=== PATIENT | male | born 1975 | race Caucasian/White ===

== ENCOUNTER 2016-05-16 10:41 | Emergency (ER) | payer OTHER ==
--- NOTE | 2016-05-16 13:37 | DIAGNOSTIC IMAGING REPORT ---
PROCEDURE: CT ABDOMEN/PELVIS W/O CONTRAST INDICATION: Right flank pain, initial encounter TECHNIQUE: Noncontrast axial images were obtained of the entire abdomen and pelvis with sagittal and coronal reformations. COMPARISON: CT abdomen/pelvis 03/02/2015 FINDINGS: ABDOMEN: 3 mm proximal right ureteral calculus with mild right hydronephrosis. There are two nonobstructing renal calculi in each kidney (one - 2 mm). Hepatic steatosis. The gallbladder, pancreas, spleen and adrenal glands are normal. Normal abdominal aorta. Nonspecific bowel gas pattern. PELVIS: Normal bladder. Normal short appendix. No pelvic mass, inflammatory changes or free fluid. No suspicious osseous lesions . IMPRESSION: 1. 3 mm proximal right ureteral calculus with mild right hydronephrosis 2. Nonobstructing bilateral renal calculi 3. Hepatic steatosis 4. Results discussed with Dr. Plunkett All CT scans at this facility use dose modulation, iterative reconstruction, and/or weight-based dosing when appropriate to reduce radiation dose to as low as reasonably achievable.
--- NOTE | 2016-05-16 14:12 | ED NURSING NOTES ---
Clinical Report - Nurses [facility] [address] [place] [address] 05/16/2016 10:41 Patient: HI BORJA TRIAGE Triage time 10:45 May 16 2016. Acuity: LEVEL 3. Chief Complaint: ABDOMINAL PAIN. Alert. MUKESH COMA SCORE: [place] Coma Scale: 15- eyes open spontaneously (4); best verbal response- oriented x 4 (5); best motor response- obeys commands (6). --10:57 Charles Kwong R.N. 10:47 05/16/16. BP: 177/99. HR: 92. RR: 18. O2 saturation: 97% on room air. Temp: 98.2 F. Pain level now: 810. Additional comments: (R) Flank/groin pain. --10:57 Charles Kwong R.N. Weight: 136 kg stated. Height/Length: 70 inches Per Patient. BMI: 43. --10:52 Charles Kwong R.N. Medications Excedrin Migraine Oral, as needed. --10:55 Charles Kwong R.N. Medication/allergy information source: the patient. --10:57 Charles Kwong R.N. Allergies No Known Drug Allergy. --10:55 Charles Kwong R.N. History Arrived by private vehicle. Historian: patient. Accompanied by family. Primary physician (none). ( (R)-sided groin and flank pain. Pt states that he has had previous kidney stones and this pain is very similar.). This started today. Onset. (about 1 1/2 hours ago). He has had nausea and abdominal pain. 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 PAST MEDICAL HX: Immunizations: status is unknown. SOCIAL HX: Former smoker, end date 2006. No alcohol use or drug use. No recent travel. No infectious disease exposure. ABUSE ASSESSMENT: No report of abuse. FALL RISK ASSESSMENT: Fall risk assessment completed. No fall risk identified. NUTRITIONAL RISK ASSESSMENT: The nutritional risk assessment revealed no deficiencies. FUNCTIONAL ASSESSMENT: Functional assessment: no impairments noted. LEARNING NEEDS ASSESSMENT: The learning needs assessment revealed no barriers. SKIN INTEGRITY ASSESSMENT: Skin integrity risk assessment completed. No skin integrity risk identified. --10:57 Charles Kwong R.N. PROBLEMS: Renal Colic. Bronchitis. Chronic bronchitis. Prior Injury, Same Area. --10:54 Charles Kwong R.N. ADDITIONAL SURGERIES: Knee Surgery. --10:54 Charles Kwong R.N. Interventions ID band on patient. To treatment room. --10:57 Charles Kwong R.N. PHYSICAL ASSESSMENT Ambulatory to room. GENERAL / NEURO / PSYCH: Alert. Oriented X 4. HEENT: Mucous membranes are pink. RESPIRATORY: Respirations not labored. Breath sounds within normal limits. CVS: Normal sinus rhythm noted. GI / : Abdomen soft. Bowel sounds within normal limits. SKIN: Skin is warm and dry. --10:57 Charles Kwong R.N. NURSING PROGRESS NOTES Patient gowned. Reassurance given. Patient identifiers checked. Call light placed in reach. Side rails up x 1. Bed placed in lowest position. Brakes of bed on. Patient ready for evaluation- chart flagged and ED physician notified. --10:57 Charles Kwong R.N. 11:47 05/16/2016 Site #1 started via IV in the right hand with an 20g angiocath. Saline lock flushed with 10 mL saline. --11:47 Charles Kwong R.N. 11:54 05/16/16. BP: 160/93. HR: 69. RR: 18. O2 saturation: 94% on room air. --11:54 Landon Tuttle R.N. 11:54 05/16/2016 Started bag #1 1000 mL IV Fluids IV NS (Saline); bolus of 1000 mL wide open then at 1000 mL/hr via site #1. Allergies verified and confirmed 5 rights. IV patency established. IV site checked: no pain, redness, or swelling. IV flushed thoroughly pre- and post-medication administration. Completed per protocol. --11:55 Landon Tuttle R.N. 11:55 05/16/2016 Dilaudid (HYDROmorphone HCl PF) IVP 1 mg given. via site #1. Allergies verified, confirmed 5 rights and sedative warning given to the patient. IV patency established. IV site checked: no pain, redness, or swelling. IV flushed thoroughly pre- and post-medication administration. IVP given by RN. --11:55 Landon Tuttle R.N. 11:55 05/16/2016 Toradol IVP 30 mg given. via site #1. Allergies verified and confirmed 5 rights. IV patency established. IV site checked: no pain, redness, or swelling. IV flushed thoroughly pre- and post-medication administration. IVP given by RN. --11:55 Landon Tuttle R.N. 11:55 05/16/2016 PHENERGAN (Promethazine HCl) IVP 12.5 mg given. via site #1. Allergies verified and confirmed 5 rights. IV patency established. IV site checked: no pain, redness, or swelling. IV flushed thoroughly pre- and post-medication administration. IVP given by RN. --11:55 Landon Tuttle R.N. ( Placed Pt on 2L 02 via nasal cannula d/t decreased 02 sats post pain medication administration.). --11:58 Landon Tuttle R.N. 11:56 05/16/16. O2 saturation: 88% on room air. --11:59 Landon Tuttle R.N. 11:59 05/16/16. O2 saturation: 94% on nasal cannula at 2 liters/minute. --11:59 Landon Tuttle R.N. 12:10 05/16/16. Checked patient name, birthdate and medical record number: patient confirmed. Instructions provided to collect clean catch urine and patient verbalized understanding. Clean catch urine collected with return of stella-colored clear urine; odor is normal; sample sent to lab for urinalysis and culture. Specimen labeled in the presence of the patient. --12:12 Charles Kwong R.N. 12:30 05/16/16. BP: 158/65. HR: 84. RR: 16. O2 saturation: 96% on nasal cannula at 2 liters/minute. Pain level now: 0/10. --12:46 Charles Kwong R.N. 13:00 05/16/2016 IV Fluids IV NS Discontinued: bag #1 infused. Total amount infused: 1000 mL. IV patency established. IV site checked: no pain, redness, or swelling. IV flushed thoroughly. --15:15 Charles Kwong R.N. 14:05 05/16/2016 Site #1 removed upon discharge. Catheter intact. Pressure dressing, bandaid and bandage applied. --15:16 Charles Kwong R.N. DISPOSITION / DISCHARGE 14:05 05/16/16. BP: 143/85. HR: 78. RR: 16. O2 saturation: 96% on room air. Temp: 98.6 F (oral). Pain level now: 0/10. --14:44 Charles Kwong R.N. <<STRICKEN ENTRY-- 14:15. --14:44 Charles Kwong R.N. --END STRIKE>> Correction --15:12 Charles Kwong R.N. Departure time: 1415. --15:12 Charles Kwong R.N. 14:15. Condition at departure: improved. No learning barriers present. Discharge instructions provided and reviewed with the patient. Reviewed medication(s) (prescription given to pt). Reviewed referral to family practice for followup. Patient verbalized understanding. Written instructions provided in Khmer. The patient was discharged by the physician. He was discharged home and accompanied by diesel technician. He left the Emergency Department ambulatory and via private vehicle. Data Warehouse Manager driving. --15:14 Charles Kwong R.N. Locked/Released at 05/16/2016 15:17 by Charles Kwong R.N.
--- NOTE | 2016-05-16 14:12 | ED ORDER SUMMARY ---
..... Patient: HI BORJA OrderSheet [facility] VisitID: [id number] [address] [place] [address] 40y, M Registration Date/Time: 05/16/2016 ORDER SHEET Weight: 136.0 kg (stated) Allergies: No Known Drug Allergy GENERAL ORDERS: UA-Culture if indicated Urgent (11:34 05/16/2016 Manjit SHIELDS) (Ack 11:36 LNations ER Tech1) (12:10 Isaiah R.N.) CT Abd/Pel wo Cont Urgent (11:05/16/2016 Manjit SHIELDS) (Ack 11:36 LNations ER Tech1) (15:16 Isaiah R.N.) MEDICATION ORDERS: Phenergan IV 12.5 mg (NOW) (:05/16/2016 Manjit SHIELDS) (11:55 MCook R.N.) IV FLUIDS: IV NS : initial bolus 1000 mL (1000 mL/hr), then none - for X1 (NOW); Routine (11:05/16/2016 Manjit SHIELDS) (11:55 MCook R.N.) Dilaudid IV 1 mg (NOW) (:05/16/2016 Manjit SHIELDS) (11:55 MCkunal R.N.) Toradol IV 30 mg (NOW) (:05/16/2016 Manjit SHIELDS) (11:55 MCook R.N.) ORDER SHEET NOTES: [Electronically signed by Charles Kwong R.N. (15:05/16/2016)] [Electronically signed by Nilo Plunkett MD (21:03 05/18/2016)] [Electronically locked/signed by Charles Kwong R.N. (15:05/16/2016)]
--- NOTE | 2016-05-16 14:12 | ED ORDER SUMMARY ---
..... Patient: HI BORJA OrderSheet [facility] VisitID: [id number] [address] [place] [address] 40y, M Registration Date/Time: 05/16/2016 ORDER SHEET Weight: 136.0 kg (stated) Allergies: No Known Drug Allergy GENERAL ORDERS: UA-Culture if indicated Urgent (11:34 05/16/2016 Manjit SHIELDS) (Ack 11:36 LNations ER Tech1) (12:10 Isaiah R.N.) CT Abd/Pel wo Cont Urgent (11:05/16/2016 Manjit SHIELDS) (Ack 11:36 LNations ER Tech1) (15:16 Isaiah R.N.) MEDICATION ORDERS: Phenergan IV 12.5 mg (NOW) (:05/16/2016 Manjit SHIELDS) (11:55 MCook R.N.) IV FLUIDS: IV NS : initial bolus 1000 mL (1000 mL/hr), then none - for X1 (NOW); Routine (11:05/16/2016 Manjit SHIELDS) (11:55 MCook R.N.) Dilaudid IV 1 mg (NOW) (:05/16/2016 Manjit SHIELDS) (11:55 MCkunal R.N.) Toradol IV 30 mg (NOW) (:05/16/2016 Manijt SHIELDS) (11:55 MCook R.N.) ORDER SHEET NOTES: [Electronically signed by Charles Kwong R.N. (15:05/16/2016)] [Electronically signed by Nilo Plunkett MD (21:03 05/18/2016)] [Electronically locked/signed by Charles Kwong R.N. (15:05/16/2016)]
--- NOTE | 2016-05-16 14:12 | ED CLINICAL REPORT ---
Clinical Report - Physicians/Mid Levels [facility] [address] [place] [address] 05/16/2016 10:41 Patient: HI BORJA Time Seen: 11:22 May 16 2016. Arrived- By private vehicle. Historian- patient. CPT: ER phys charges level 4 (#[id number]). HISTORY OF PRESENT ILLNESS Chief Complaint: ABDOMINAL PAIN and FLANK PAIN. At its maximum, severity described as 8 / 10. When seen in the E.D., severity described as 8 / 10. Modifying factors. Not worsened by anything. Not relieved by anything. It is described as "pain" and it is described as located in the right flank and the right abdomen, right lower quadrant and right pelvis. This started today 0900. It was abrupt in onset and has been constant. The patient has had nausea. No loss of appetite, vomiting or diarrhea. No recent travel. Similar symptoms previously: As bad. Diagnosis: kidney stone. Recent medical care: Not recently seen/assessed. REVIEW OF SYSTEMS No constipation, black stools, hematemesis, difficulty with urination or pain with urination. No urinary frequency, fever, sore throat, chest pain or difficulty breathing. No cough, joint pain, skin rash or chills. The patient has had back pain. All systems otherwise negative, except as recorded above. PAST HISTORY Has had urinary calculi. Renal Colic. Bronchitis. Chronic bronchitis. Prior Injury, Same Area. Obesity Additional Surgeries: Knee Surgery. SOCIAL HISTORY Former smoker. No alcohol use or drug use. ADDITIONAL NOTES The nursing notes have been reviewed. PHYSICAL EXAM Vital Signs: 05/16/2016 10:47 BP: 177/99. HR: 92. RR: 18. O2 saturation: 97%. Temp: 98.2 F. Pain level now: 8/10. Appearance: Alert. Appears to be in pain. Patient in moderate distress. Eyes: Pupils equal, round and reactive to light. Eyes normal inspection. ENT: Ears normal. Nose normal. Pharynx normal. Neck: Normal inspection. Neck supple. CVS: Normal heart rate and rhythm. Heart sounds normal. Pulses normal. Respiratory: No respiratory distress. Breath sounds normal. Chest nontender. Abdomen: Nontender. Bowel sounds normal. Obese. Back: Normal inspection. No CVA tenderness. Skin: Skin warm. Normal skin color. No rash. Extremities: Extremities exhibit normal ROM. Neuro: Oriented X 3. No motor deficit. No sensory deficit. Reflexes normal. LABS, X-RAYS, AND EKG Laboratory Tests: UA-Culture if indicated: (CYDNEY: 05/16/2016 12:05) ( MsgRcvd 05/16/2016 12:35) Final results Test Result Flag Units (Reference) URINE COLOR YELLOW URINE APPEARANCE SL CLOUDY URINE GLUCOSE NEGATIVE (NEGATIVE) URINE BILIRUBIN NEGATIVE (NEGATIVE) URINE KETONE NEGATIVE (NEGATIVE) URINE SPECIFIC GRAVITY 1.015 (1.010-1.030) URINE PH 7.0 (5.0-8.0) URINE PROTEIN 1+ (NEGATIVE) URINE UROBILINOGEN 0.2 EU/dL (0.2-1.0) URINE NITRITE NEGATIVE (NEGATIVE) URINE BLOOD 3+ (NEGATIVE) URINE LEUK ESTERASE NEGATIVE (NEGATIVE) URINE RBC >100 rbc/hpf (0-1) URINE WBC 1-3 wbc/hpf (0-1) URINE EPITHELIAL CELLS 0-1 EPI/hpf (0-5) URINE BACTERIA TRACE (<1+) (NONE SEEN) URINE COMMENT CULT NOT INDICATED URINE CULTURES ARE SET-UP BASED ON THE FOLLOWING CRITERIA:POSITIVE NITRITEPOSITIVE LEUKOCYTE ESTERASEGREATER THAN 10 WHITE BLOOD CELLSMODERATE (2+) OR GREATER BACTERIA . PROGRESS AND PROCEDURES Course of Care: IV NS Dilaudid 1 mg IV Toradol 30 mg IV Phenergan 12.5 mg IV Patient is stable. Symptoms better. Patient/family counseled. Disposition: Discharged. Condition: stable and improved. CLINICAL IMPRESSION Ureterolithiasis (single stone) in the right ureter. INSTRUCTIONS No strenuous activity. Do not work for two days until better. Drink plenty of fluids. Warnings: Further evaluation is necessary. SEDATIVE MEDICATION: You were given sedative medication during your visit. Do not drive or operate dangerous machinery. GENERAL WARNINGS: Return or contact your physician immediately if your condition worsens or changes unexpectedly, if not improving as expected, or if other problems arise. Your Current Medications: CONTINUE TAKING THE FOLLOWING MEDICATIONS: Excedrin Migraine Oral : prn. Prescription Medications: Zofran (orally disintegrating tablets) 4 mg: take 1 orally every 6 hours as needed for nausea. Dispense ten (10). No refill. Substitution is permissible. Oxycodone/APAP 5 mg/325 mg: take 1-2 tablets orally every 4 hours as needed for pain. Dispense twenty-five (25). No refill. Flomax 0.4 mg: take 1 orally every 24 hours. Dispense five (5). No refills. Follow-up: Follow up with your doctor in two days if not better. Understanding of the discharge instructions verbalized by patient. (Electronically signed by Nilo Plunkett MD 05/18/2016 21:03)
--- NOTE | 2016-05-16 14:12 | ED NURSING NOTES ---
Clinical Report - Nurses [facility] [address] [place] [address] 05/16/2016 10:41 Patient: HI BORJA TRIAGE Triage time 10:45 May 16 2016. Acuity: LEVEL 3. Chief Complaint: ABDOMINAL PAIN. Alert. MUKESH COMA SCORE: [place] Coma Scale: 15- eyes open spontaneously (4); best verbal response- oriented x 4 (5); best motor response- obeys commands (6). --10:57 Charles Kwong R.N. 10:47 05/16/16. BP: 177/99. HR: 92. RR: 18. O2 saturation: 97% on room air. Temp: 98.2 F. Pain level now: 810. Additional comments: (R) Flank/groin pain. --10:57 Charles Kwong R.N. Weight: 136 kg stated. Height/Length: 70 inches Per Patient. BMI: 43. --10:52 Charles Kwong R.N. Medications Excedrin Migraine Oral, as needed. --10:55 Charles Kwong R.N. Medication/allergy information source: the patient. --10:57 Charles Kwong R.N. Allergies No Known Drug Allergy. --10:55 Charles Kwong R.N. History Arrived by private vehicle. Historian: patient. Accompanied by family. Primary physician (none). ( (R)-sided groin and flank pain. Pt states that he has had previous kidney stones and this pain is very similar.). This started today. Onset. (about 1 1/2 hours ago). He has had nausea and abdominal pain. 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 PAST MEDICAL HX: Immunizations: status is unknown. SOCIAL HX: Former smoker, end date 2006. No alcohol use or drug use. No recent travel. No infectious disease exposure. ABUSE ASSESSMENT: No report of abuse. FALL RISK ASSESSMENT: Fall risk assessment completed. No fall risk identified. NUTRITIONAL RISK ASSESSMENT: The nutritional risk assessment revealed no deficiencies. FUNCTIONAL ASSESSMENT: Functional assessment: no impairments noted. LEARNING NEEDS ASSESSMENT: The learning needs assessment revealed no barriers. SKIN INTEGRITY ASSESSMENT: Skin integrity risk assessment completed. No skin integrity risk identified. --10:57 Charles Kwong R.N. PROBLEMS: Renal Colic. Bronchitis. Chronic bronchitis. Prior Injury, Same Area. --10:54 Charles Kwong R.N. ADDITIONAL SURGERIES: Knee Surgery. --10:54 Charles Kwong R.N. Interventions ID band on patient. To treatment room. --10:57 Charles Kwong R.N. PHYSICAL ASSESSMENT Ambulatory to room. GENERAL / NEURO / PSYCH: Alert. Oriented X 4. HEENT: Mucous membranes are pink. RESPIRATORY: Respirations not labored. Breath sounds within normal limits. CVS: Normal sinus rhythm noted. GI / : Abdomen soft. Bowel sounds within normal limits. SKIN: Skin is warm and dry. --10:57 Charles Kwong R.N. NURSING PROGRESS NOTES Patient gowned. Reassurance given. Patient identifiers checked. Call light placed in reach. Side rails up x 1. Bed placed in lowest position. Brakes of bed on. Patient ready for evaluation- chart flagged and ED physician notified. --10:57 Charles Kwong R.N. 11:47 05/16/2016 Site #1 started via IV in the right hand with an 20g angiocath. Saline lock flushed with 10 mL saline. --11:47 Charles Kwong R.N. 11:54 05/16/16. BP: 160/93. HR: 69. RR: 18. O2 saturation: 94% on room air. --11:54 Landon Tuttle R.N. 11:54 05/16/2016 Started bag #1 1000 mL IV Fluids IV NS (Saline); bolus of 1000 mL wide open then at 1000 mL/hr via site #1. Allergies verified and confirmed 5 rights. IV patency established. IV site checked: no pain, redness, or swelling. IV flushed thoroughly pre- and post-medication administration. Completed per protocol. --11:55 Landon Tuttle R.N. 11:55 05/16/2016 Dilaudid (HYDROmorphone HCl PF) IVP 1 mg given. via site #1. Allergies verified, confirmed 5 rights and sedative warning given to the patient. IV patency established. IV site checked: no pain, redness, or swelling. IV flushed thoroughly pre- and post-medication administration. IVP given by RN. --11:55 Landon Tuttle R.N. 11:55 05/16/2016 Toradol IVP 30 mg given. via site #1. Allergies verified and confirmed 5 rights. IV patency established. IV site checked: no pain, redness, or swelling. IV flushed thoroughly pre- and post-medication administration. IVP given by RN. --11:55 Landon Tuttle R.N. 11:55 05/16/2016 PHENERGAN (Promethazine HCl) IVP 12.5 mg given. via site #1. Allergies verified and confirmed 5 rights. IV patency established. IV site checked: no pain, redness, or swelling. IV flushed thoroughly pre- and post-medication administration. IVP given by RN. --11:55 Landon Tuttle R.N. ( Placed Pt on 2L 02 via nasal cannula d/t decreased 02 sats post pain medication administration.). --11:58 Landon Tuttle R.N. 11:56 05/16/16. O2 saturation: 88% on room air. --11:59 Landon Tuttle R.N. 11:59 05/16/16. O2 saturation: 94% on nasal cannula at 2 liters/minute. --11:59 Landon Tuttle R.N. 12:10 05/16/16. Checked patient name, birthdate and medical record number: patient confirmed. Instructions provided to collect clean catch urine and patient verbalized understanding. Clean catch urine collected with return of stella-colored clear urine; odor is normal; sample sent to lab for urinalysis and culture. Specimen labeled in the presence of the patient. --12:12 Chrales Kwong R.N. 12:30 05/16/16. BP: 158/65. HR: 84. RR: 16. O2 saturation: 96% on nasal cannula at 2 liters/minute. Pain level now: 0/10. --12:46 Charles Kwong R.N. 13:00 05/16/2016 IV Fluids IV NS Discontinued: bag #1 infused. Total amount infused: 1000 mL. IV patency established. IV site checked: no pain, redness, or swelling. IV flushed thoroughly. --15:15 Charles Kwong R.N. 14:05 05/16/2016 Site #1 removed upon discharge. Catheter intact. Pressure dressing, bandaid and bandage applied. --15:16 Charles Kwong R.N. DISPOSITION / DISCHARGE 14:05 05/16/16. BP: 143/85. HR: 78. RR: 16. O2 saturation: 96% on room air. Temp: 98.6 F (oral). Pain level now: 0/10. --14:44 Charles Kwong R.N. <<STRICKEN ENTRY-- 14:15. --14:44 Charles Kwong R.N. --END STRIKE>> Correction --15:12 Charles Kwong R.N. Departure time: 1415. --15:12 Charles Kwong R.N. 14:15. Condition at departure: improved. No learning barriers present. Discharge instructions provided and reviewed with the patient. Reviewed medication(s) (prescription given to pt). Reviewed referral to family practice for followup. Patient verbalized understanding. Written instructions provided in Latvian. The patient was discharged by the physician. He was discharged home and accompanied by delivery agent. He left the Emergency Department ambulatory and via private vehicle. Knitter Mechanic driving. --15:14 Charles Kwong R.N. Locked/Released at 05/16/2016 15:17 by Charles Kwong R.N.
--- NOTE | 2016-05-18 21:03 | ED MAR SUMMARY ---
..... Medication Administration Record [facility] [address] [place] [address] Patient: HI BORJA Visit ID: [id number] 40y, M Weight: 136.0 kg Height/Length: 70 in BMI: 43 ALLERGIES: No Known Drug Allergy Start 11:54 05/16/2016 Landon Tuttle R.N., Stop 13:00 05/16/2016 Charles Kwong R.N. Medication Administered: IV NS (SALINE), Dose: IV Fluids, Rate: 1000 mL/hr, Bolus: 1000 mL wide open, Dispensed: 1000 mL bag, Site: #1 right hand. Medication Ordered: IV NS : initial bolus 1000 mL (1000 mL/hr), then none - for X1 (NOW); Routine. Given 11:05/16/2016 Landon Tuttle R.N. Medication Administered: DILAUDID [IVP] (HYDROMORPHONE HCL PF), Dose: 1 mg IVP, Site: #1 right hand. Medication Ordered: Dilaudid IV 1 mg (NOW). Given 11:05/16/2016 Landon Tuttle R.N. Medication Administered: TORADOL [IVP], Dose: 30 mg IVP, Site: #1 right hand. Medication Ordered: Toradol IV 30 mg (NOW). Given 11:05/16/2016 Landon Tuttle R.N. Medication Administered: PHENERGAN [IVP] (PROMETHAZINE HCL), Dose: 12.5 mg IVP, Site: #1 right hand. Medication Ordered: Phenergan IV 12.5 mg (NOW).
--- NOTE | 2016-05-18 21:03 | ED MED RECONCILIATION SUMMARY ---
Patient: HI BORJA Medication Reconciliation Report [facility] VisitID: [id number] [address] [place] [address] 40y, M Registration Date/Time: 05/16/2016 Weight: 136.0 kg Height/Length: 70 in. BMI: 43.0 ALLERGIES: No Known Drug Allergy The patient's Home Medications are listed below: CONTINUE TAKING THE FOLLOWING MEDICATIONS: Excedrin Migraine Oral The source(s) of the original Home Medication information: patient The following Medications were given to the patient in the Emergency Department: IV NS IV Fluids bolus 1000 mL wide open, then 1000 mL/hr, administered: 05/16/2016 11:54:00 AM Dilaudid [IVP] IVP 1 mg, administered: 05/16/2016 11:55:00 AM Toradol [IVP] IVP 30 mg, administered: 05/16/2016 11:55:00 AM PHENERGAN [IVP] IVP 12.5 mg, administered: 05/16/2016 11:55:00 AM The following Medications were prescribed to the patient: Zofran (orally disintegrating tablets) 4 mg: take 1 orally every 6 hours as needed for nausea. Dispense ten (10). No refill. Substitution is permissible. -- Nilo Plunkett MD Oxycodone/APAP 5 mg/325 mg: take 1-2 tablets orally every 4 hours as needed for pain. Dispense twenty-five (25). No refill. -- Nilo Plunkett MD Flomax 0.4 mg: take 1 orally every 24 hours. Dispense five (5). No refills. -- Nilo Plunkett MD
--- NOTE | 2016-05-18 21:03 | ED MAR SUMMARY ---
..... Medication Administration Record [facility] [address] [place] [address] Patient: HI BORJA Visit ID: [id number] 40y, M Weight: 136.0 kg Height/Length: 70 in BMI: 43 ALLERGIES: No Known Drug Allergy Start 11:54 05/16/2016 Landon Tuttle R.N., Stop 13:00 05/16/2016 Charles Kwong R.N. Medication Administered: IV NS (SALINE), Dose: IV Fluids, Rate: 1000 mL/hr, Bolus: 1000 mL wide open, Dispensed: 1000 mL bag, Site: #1 right hand. Medication Ordered: IV NS : initial bolus 1000 mL (1000 mL/hr), then none - for X1 (NOW); Routine. Given 11:05/16/2016 Landon Tuttle R.N. Medication Administered: DILAUDID [IVP] (HYDROMORPHONE HCL PF), Dose: 1 mg IVP, Site: #1 right hand. Medication Ordered: Dilaudid IV 1 mg (NOW). Given 11:05/16/2016 Lanodn Tuttle R.N. Medication Administered: TORADOL [IVP], Dose: 30 mg IVP, Site: #1 right hand. Medication Ordered: Toradol IV 30 mg (NOW). Given 11:05/16/2016 Landon Tuttle R.N. Medication Administered: PHENERGAN [IVP] (PROMETHAZINE HCL), Dose: 12.5 mg IVP, Site: #1 right hand. Medication Ordered: Phenergan IV 12.5 mg (NOW).
--- NOTE | 2016-05-18 21:03 | ED DISCHARGE INSTRUCTIONS ---
Patient: HI BORJA General Instructions [facility] VisitID: [id number] [place] [address] 40y, M Registration Date/Time: 05/16/2016 Ureterolithiasis (single stone) in the right ureter. INSTRUCTIONS No strenuous activity. Do not work for two days until better. Drink plenty of fluids. Warnings: Further evaluation is necessary. SEDATIVE MEDICATION: You were given sedative medication during your visit. Do not drive or operate dangerous machinery. GENERAL WARNINGS: Return or contact your physician immediately if your condition worsens or changes unexpectedly, if not improving as expected, or if other problems arise. Your Current Medications: CONTINUE TAKING THE FOLLOWING MEDICATIONS: Excedrin Migraine Oral : prn. Prescription Medications: Zofran (orally disintegrating tablets) 4 mg: take 1 orally every 6 hours as needed for nausea. Dispense ten (10). No refill. Substitution is permissible. Oxycodone/APAP 5 mg/325 mg: take 1-2 tablets orally every 4 hours as needed for pain. Dispense twenty-five (25). No refill. Flomax 0.4 mg: take 1 orally every 24 hours. Dispense five (5). No refills. Follow-up: Follow up with your doctor in two days if not better. Understanding of the discharge instructions verbalized by patient. ADDITIONAL INFORMATION Kidney Stone (W/ Colic) The sharp cramping pain and nausea/vomiting that you have is due to a small stone which has formed in the kidney and is now passing down a narrow tube (ureter) on its way to your bladder. Once it reaches your bladder, the pain will stop. The stone may pass in your urine stream in one piece. [The size may be 1/16" to 1/4" (1-6mm)]. Or, the stone may also break up into leandra fragments which you may not even notice. Once you have had a kidney stone, you are at risk for developing another one in the future. Home Care: Drink plenty of fluids (at least 8 to 10 glasses of water a day). Most stones will pass on their own, but may take from a few hours to a few days. Sometimes the stone is too large to pass by itself and special methods will have to be used to remove the stone. Each time you urinate, do so in a jar. Pour the urine from the jar through the strainer and into the toilet. Continue doing this until 24 hours after your pain stops. By then, if there was a kidney stone, it should pass from your bladder. Some stones dissolve into sand-like particles and pass right through the strainer. In that case, you wont ever see a stone. Save any stone that you find in the strainer and bring it to your doctor for analysis. It may be possible to prevent certain types of stones from forming. Therefore, it is important to know what kind of stone you have. Try to stay as active as possible since this will help the stone pass. Do not stay in bed unless your pain prevents you from getting up. You may notice a red, pink or brown color to your urine. This is normal while passing a kidney stone. Follow Up with your doctor or return to this facility if the pain lasts more than 48 hours. Get Prompt Medical Attention if any of the following occur: Pain that is not controlled by the medicine given Repeated vomiting or unable to keep down fluids Weakness, dizziness or fainting Fever of 100.4F (38C) or higher, or as directed by your healthcare provider Passage of solid red or brown urine (can't see through it) or urine with lots of blood clots Unable to pass urine for 8 hours and increasing bladder pressure Ondansetron Oral disintegrating tablet What is this medicine? ONDANSETRON (on EDELMIRA se vitaly) is used to treat nausea and vomiting caused by chemotherapy. It is also used to prevent or treat nausea and vomiting after surgery. How should I use this medicine? These tablets are made to dissolve in the mouth. Do not try to push the tablet through the foil backing. With dry hands, peel away the foil backing and gently remove the tablet. Place the tablet in the mouth and allow it to dissolve, then swallow. While you may take these tablets with water, it is not necessary to do so. Talk to your sleeve fixer regarding the use of this medicine in children. Special care may be needed. What side effects may I notice from receiving this medicine? Side effects that you should report to your doctor or health health care social worker as soon as possible: allergic reactions like skin rash, itching or hives, swelling of the face, lips, or tongue breathing problems dizziness fast or irregular heartbeat feeling faint or lightheaded, falls fever and chills swelling of the hands and feet tightness in the chest Side effects that usually do not require medical attention (report to your doctor or health health care social worker if they continue or are bothersome): constipation or diarrhea headache What may interact with this medicine? Do not take this medicine with any of the following medications: -apomorphine -cisapride -dofetilide -dronedarone -pimozide -thioridazine -ziprasidone This medicine may also interact with the following medications: -carbamazepine -phenytoin -rifampicin -tramadol -other medicines that prolong the QT interval (cause an abnormal heart rhythm) What if I miss a dose? If you miss a dose, take it as soon as you can. If it is almost time for your next dose, take only that dose. Do not take double or extra doses. Where should I keep my medicine? Keep out of the reach of children. Store between 2 and 30 degrees C (36 and 86 degrees F). Throw away any unused medicine after the expiration date. What should I tell my health care provider before I take this medicine? They need to know if you have any of these conditions: heart disease history of irregular heartbeat liver disease low levels of magnesium or potassium in the blood an unusual or allergic reaction to ondansetron, granisetron, other medicines, foods, dyes, or preservatives or trying to get breast-feeding What should I watch for while using this medicine? Check with your doctor or health health care social worker as soon as you can if you have any sign of an allergic reaction. Oxycodone Hydrochloride, Acetaminophen Oral tablet What is this medicine? ACETAMINOPHEN; OXYCODONE (a set a SILVINA dominique fen; ox i KOE done) is a pain reliever. It is used to treat mild to moderate pain. How should I use this medicine? Take this medicine by mouth with a full glass of water. Follow the directions on the prescription label. Take your medicine at regular intervals. Do not take your medicine more often than directed. Talk to your sleeve fixer regarding the use of this medicine in children. Special care may be needed. Patients over 65 years old may have a stronger reaction and need a smaller dose. What side effects may I notice from receiving this medicine? Side effects that you should report to your doctor or health health care social worker as soon as possible: allergic reactions like skin rash, itching or hives, swelling of the face, lips, or tongue breathing difficulties, wheezing confusion light headedness or fainting spells severe stomach pain yellowing of the skin or the whites of the eyes Side effects that usually do not require medical attention (report to your doctor or health health care social worker if they continue or are bothersome): dizziness drowsiness nausea vomiting What may interact with this medicine? alcohol antihistamines barbiturates like amobarbital, butalbital, butabarbital, methohexital, pentobarbital, phenobarbital, thiopental, and secobarbital benztropine drugs for bladder problems like solifenacin, trospium, oxybutynin, tolterodine, hyoscyamine, and methscopolamine drugs for breathing problems like ipratropium and tiotropium drugs for certain stomach or intestine problems like propantheline, homatropine methylbromide, glycopyrrolate, atropine, belladonna, and dicyclomine general anesthetics like etomidate, ketamine, nitrous oxide, propofol, desflurane, enflurane, halothane, isoflurane, and sevoflurane medicines for depression, anxiety, or psychotic disturbances medicines for sleep muscle relaxants naltrexone narcotic medicines (opiates) for pain phenothiazines like perphenazine, thioridazine, chlorpromazine, mesoridazine, fluphenazine, prochlorperazine, promazine, and trifluoperazine scopolamine tramadol trihexyphenidyl What if I miss a dose? If you miss a dose, take it as soon as you can. If it is almost time for your next dose, take only that dose. Do not take double or extra doses. Where should I keep my medicine? Keep out of the reach of children. This medicine can be abused. Keep your medicine in a safe place to protect it from theft. Do not share this medicine with anyone. Selling or giving away this medicine is dangerous and against the law. Store at room temperature between 20 and 25 degrees C (68 and 77 degrees F). Keep container tightly closed. Protect from light. This medicine may cause accidental overdose and if it is taken by other adults, children, or pets. Flush any unused medicine down the toilet to reduce the chance of harm. Do not use the medicine after the expiration date. What should I tell my health care provider before I take this medicine? They need to know if you have any of these conditions: brain tumor Crohn's disease, inflammatory bowel disease, or ulcerative colitis drink more than 3 alcohol containing drinks per day drug abuse or addiction head injury heart or circulation problems kidney disease or problems going to the bathroom liver disease lung disease, asthma, or breathing problems an unusual or allergic reaction to acetaminophen, oxycodone, other opioid analgesics, other medicines, foods, dyes, or preservatives or trying to get breast-feeding What should I watch for while using this medicine? Tell your doctor or health health care social worker if your pain does not go away, if it gets worse, or if you have new or a different type of pain. You may develop tolerance to the medicine. Tolerance means that you will need a higher dose of the medication for pain relief. Tolerance is normal and is expected if you take this medicine for a long time. Do not suddenly stop taking your medicine because you may develop a severe reaction. Your body becomes used to the medicine. This does NOT mean you are addicted. Addiction is a behavior related to getting and using a drug for a non-medical reason. If you have pain, you have a medical reason to take pain medicine. Your doctor will tell you how much medicine to take. If your doctor wants you to stop the medicine, the dose will be slowly lowered over time to avoid any side effects. You may get drowsy or dizzy. Do not drive, use machinery, or do anything that needs mental alertness until you know how this medicine affects you. Do not stand or sit up quickly, especially if you are an older patient. This reduces the risk of dizzy or fainting spells. Alcohol may interfere with the effect of this medicine. Avoid alcoholic drinks. There are different types of narcotic medicines (opiates) for pain. If you take more than one type at the same time, you may have more side effects. Give your health care provider a list of all medicines you use. Your doctor will tell you how much medicine to take. Do not take more medicine than directed. Call emergency for help if you have problems breathing. The medicine will cause constipation. Try to have a bowel movement at least every 2 to 3 days. If you do not have a bowel movement for 3 days, call your doctor or health health care social worker. Do not take Tylenol (acetaminophen) or medicines that have acetaminophen with this medicine. Too much acetaminophen can be very dangerous. Many nonprescription medicines contain acetaminophen. Always read the labels carefully to avoid taking more acetaminophen. You have been given the following additional information: Kidney Stone W/ Colic Ondansetron Oral disintegrating tablet Oxycodone Hydrochloride, Acetaminophen Oral tablet No strenuous activity. Do not work for two days until better. (Electronically signed by Nilo Plunkett MD 05/18/2016 21:03)
--- NOTE | 2016-05-18 21:03 | ED MED RECONCILIATION SUMMARY ---
Patient: HI BORJA Medication Reconciliation Report [facility] VisitID: [id number] [address] [place] [address] 40y, M Registration Date/Time: 05/16/2016 Weight: 136.0 kg Height/Length: 70 in. BMI: 43.0 ALLERGIES: No Known Drug Allergy The patient's Home Medications are listed below: CONTINUE TAKING THE FOLLOWING MEDICATIONS: Excedrin Migraine Oral The source(s) of the original Home Medication information: patient The following Medications were given to the patient in the Emergency Department: IV NS IV Fluids bolus 1000 mL wide open, then 1000 mL/hr, administered: 05/16/2016 11:54:00 AM Dilaudid [IVP] IVP 1 mg, administered: 05/16/2016 11:55:00 AM Toradol [IVP] IVP 30 mg, administered: 05/16/2016 11:55:00 AM PHENERGAN [IVP] IVP 12.5 mg, administered: 05/16/2016 11:55:00 AM The following Medications were prescribed to the patient: Zofran (orally disintegrating tablets) 4 mg: take 1 orally every 6 hours as needed for nausea. Dispense ten (10). No refill. Substitution is permissible. -- Nilo Plunkett MD Oxycodone/APAP 5 mg/325 mg: take 1-2 tablets orally every 4 hours as needed for pain. Dispense twenty-five (25). No refill. -- Nilo Plunkett MD Flomax 0.4 mg: take 1 orally every 24 hours. Dispense five (5). No refills. -- Nilo Plunkett MD
== END 2016-05-16 14:15 | disposition home or self-care (01) ==
LOC: ED SRH 10:41
DX: N20.1 Calculus of ureter (principal); Z87.891 Personal history of nicotine dependence
CPT/HCPCS: 90004

== ENCOUNTER 2016-05-20 03:54 | Emergency (ER) | payer OTHER ==
--- NOTE | 2016-05-20 04:24 | ED CLINICAL REPORT ---
Clinical Report - Physicians/Mid Levels [facility] [address] [place] [address] 05/20/2016 3:53 Patient: HI BORJA Time Seen: 03:59. Arrived- By private vehicle. Historian- patient. HISTORY OF PRESENT ILLNESS Chief Complaint: FLANK PAIN. It is described as "pain" and it is described as located in the right flank and the right abdomen and right lower quadrant and radiating to the right lower quadrant of the abdomen. This started about 5 hours ago and is still present. It was gradual in onset and has been waxing/waning. At its maximum, severity described as severe. When seen in the E.D., severity described as moderate. Modifying factors. Not worsened by anything. Not relieved by anything. No vomiting or diarrhea. (Pt with recently passed stone -- symptoms resolved, only to return tonight). Similar symptoms previously: ( On 05/16/16 he likely passed a kidney stone - CT reveals stone and UA c/w stone, but no signs of UTI. Also similar presentation to [facility] ED on 02/25/[address] proven stone). Recent medical care: The patient was seen recently at this facility in the emergency department. Evaluation/treatment: urinalysis. Diagnosis: kidney stone. REVIEW OF SYSTEMS No constipation, black stools, hematemesis, pain with urination or urinary frequency. No bloody stools, fever, headache, sore throat or chest pain. No difficulty breathing or cough. The patient has had back pain. All systems otherwise negative, except as recorded above. PAST HISTORY Has had urinary calculi with renal colic (has had 2 prior abd/pelvis CT's. Bronchitis. Chronic bronchitis. Obesity Surgeries: Knee Surgery. SOCIAL HISTORY Former smoker. No alcohol use or drug use. ADDITIONAL NOTES The nursing notes have been reviewed. PHYSICAL EXAM Vital Signs: 05/20/2016 04:01 BP: 168/99. HR: 95. RR: 20. O2 saturation: 98%. Temp: 98.7 F. Pain level now: 1010. Appearance: Alert. Oriented X3. Patient in mild distress. Eyes: No scleral icterus or pale conjunctivae. ENT: Pharynx normal. No pharyngeal erythema or tonsillar exudate. Neck: Normal inspection. Neck supple. CVS: Normal heart rate and rhythm. Heart sounds normal. Pulses normal. Respiratory: No respiratory distress. Breath sounds normal. Abdomen: Soft and nontender. No mass. Obese. No rebound tenderness or guarding. Back: Normal inspection. Moderate CVA tenderness on the right. Skin: Skin warm and dry. Normal skin color. Normal skin turgor. Moderate skin rash (psoriaform rash on post elbows and face). Extremities: Extremities exhibit normal ROM. No lower extremity edema. Neuro: Oriented X 3. No motor deficit. LABS, X-RAYS, AND EKG Pulse Oximetry: 05/20/2016 04:01 O2 saturation: 98%. (FIO2 - room air). Interpretation: normal. Note - Tests: (CT abd/pelivs without contrast (done 05/16/16): IMPRESSION: 1. 3 mm proximal right ureteral calculus with mild right hydronephrosis 2. Nonobstructing bilateral renal calculi 3. Hepatic steatosis). PROGRESS AND PROCEDURES Course of Care: Toradol 60mg IM given. Dilaudid 1 mg with Phenergan 25 mg IM given. Patient is stable. Physical exam findings are improved. Symptoms much better. Pt with h/o kidney stones with similar pain. I will hold CT per "Choosing Wisely" guidelines. Pt informed that he will need urology if not improving as expected (as he has in the past) - he is aware that there is no urology service at [facility]. Patient/family counseled. Old ED records reviewed. Disposition: Discharged. Condition: stable and improved. CLINICAL IMPRESSION Ureterolithiasis (single stone) in the right ureter with renal colic. Essential hypertension. Morbid obesity (BMI >=40) due to excess calories. INSTRUCTIONS Do not work for three days. Drink plenty of fluids. No alcohol until released. Warnings: Further evaluation is necessary. SEDATIVE MEDICATION: You were given sedative medication during your visit. Do not drive or operate dangerous machinery. CONTROLLED SUBSTANCE WARNINGS. GENERAL WARNINGS: Return or contact your physician immediately if your condition worsens or changes unexpectedly, if not improving as expected, or if other problems arise. Your Current Medications: CONTINUE TAKING THE FOLLOWING MEDICATIONS: Excedrin Migraine Oral : prn. Prescription Medications: Ibuprofen 800 mg tablets: take 1 tablet orally every 8 hours as needed for pain. Dispense thirty (30). No refills. Percocet 5 mg/325 mg: take 1 tablet orally every 6 hours as needed for pain. Dispense fifteen (15). No refills. Substitution is permissible. Flomax 0.4 mg: take 1 orally every 24 hours. Dispense ten (10). No refills. Substitution is permissible. OTC Medications: Take acetaminophen (Tylenol, Datril, etc.) according to label instructions. Available over the counter. Follow-up: Follow up with your doctor tomorrow. Follow up with a urologist tomorrow. Screening today revealed the patient's blood pressure to be in the hypertensive range. The patient should follow up with a primary care provider for blood pressure management. (Electronically signed by Pablo Cunningham DO 05/20/2016 6:25)
--- NOTE | 2016-05-20 04:24 | ED ORDER SUMMARY ---
..... Patient: HI BORJA OrderSheet [facility] VisitID: [id number] [address] [place] [address] 40y, M Registration Date/Time: 05/20/2016 ORDER SHEET Weight: 145.1 kg (estimated) Allergies: No Known Drug Allergy GENERAL ORDERS: MEDICATION ORDERS: Toradol IM 60 mg (NOW) (04:14 05/20/2016 [facility]) (Ack 4:15 HKone R.N.) (4:28 HKone R.N.) Dilaudid IM 1 mg (NOW) (04:14 05/20/2016 [facility]) (Ack 4:15 HKone R.N.) (4:28 HKone R.N.) Phenergan IM 25 mg (HIGH ALERT MEDICATION, NOW) (04:14 05/20/2016 [facility]) (Ack 4:15 HKone R.N.) (4:29 HKone R.N.) IV FLUIDS: ORDER SHEET NOTES: [Electronically signed by Rhina Sung R.N. (04:54 05/20/2016)] [Electronically signed by Pablo Cunningham DO (06:25 05/20/2016)] [Electronically locked/signed by Rhina Sung R.N. (04:54 05/20/2016)]
--- NOTE | 2016-05-20 04:24 | ED ORDER SUMMARY ---
..... Patient: HI BORJA OrderSheet [facility] VisitID: [id number] [address] [place] [address] 40y, M Registration Date/Time: 05/20/2016 ORDER SHEET Weight: 145.1 kg (estimated) Allergies: No Known Drug Allergy GENERAL ORDERS: MEDICATION ORDERS: Toradol IM 60 mg (NOW) (04:14 05/20/2016 [facility]) (Ack 4:15 HKone R.N.) (4:28 HKone R.N.) Dilaudid IM 1 mg (NOW) (04:14 05/20/2016 [facility]) (Ack 4:15 HKone R.N.) (4:28 HKone R.N.) Phenergan IM 25 mg (HIGH ALERT MEDICATION, NOW) (04:14 05/20/2016 [facility]) (Ack 4:15 HKone R.N.) (4:29 HKone R.N.) IV FLUIDS: ORDER SHEET NOTES: [Electronically signed by Rhina Sung R.N. (04:54 05/20/2016)] [Electronically signed by Pablo Cunningham DO (06:25 05/20/2016)] [Electronically locked/signed by Rhina Sung R.N. (04:54 05/20/2016)]
--- NOTE | 2016-05-20 04:24 | ED NURSING NOTES ---
Clinical Report - Nurses [facility] [address] [place] [address] 05/20/2016 3:53 Patient: HI BORJA TRIAGE Triage time 0401. Acuity: LEVEL 3. ANDREE COMA SCORE: Andree Coma Scale: 15- eyes open spontaneously (4); best verbal response- oriented x 4 (5); best motor response- obeys commands (6). --04:05 Rhina Sung R.N. 04:01 05/20/16. BP: 168/99. HR: 95. RR: 20 (unlabored). O2 saturation: 98% on room air. Temp: 98.7 F (oral). Pain level now: 01/08. --04:05 Rhina Sung R.N. Triage time 0401. Chief Complaint: (possible kidney stone). --04:53 Rhina Sung R.N. Weight: 145.1 kg estimated. Height/Length: 70 inches Per Patient. BMI: 45.9. --04:00 Rhina Sung R.N. Medications Excedrin Migraine Oral, as needed. --04:03 Rhina Sung R.N. Allergies No Known Drug Allergy. --04:03 Rhina Sung R.N. Medication/allergy information source: the patient. --04:05 Rhina Sung R.N. History Arrived by private vehicle. Historian: patient. Accompanied by family. Primary physician (none). ( pt c/o right flank pain since 10 pm last night. pt treated 4 days ago for a kidney stone. pt states he figured the stone had passed since all of his symptoms subsided on Saturday.). This started last night. Treatment ACTIVITIES OFFICER: (oxycodone). SOCIAL HX: Never smoker. No alcohol use or drug use. ABUSE ASSESSMENT: No report of abuse. FALL RISK ASSESSMENT: Fall risk assessment completed. No fall risk identified. NUTRITIONAL RISK ASSESSMENT: The nutritional risk assessment revealed no deficiencies. FUNCTIONAL ASSESSMENT: Functional assessment: no impairments noted. LEARNING NEEDS ASSESSMENT: The learning needs assessment revealed no barriers. SKIN INTEGRITY ASSESSMENT: Skin integrity risk assessment completed. No skin integrity risk identified. --04:05 Rhina Sung R.N. PROBLEMS: Ureterolithiasis. Urinary Calculi. Renal Colic. Bronchitis. Chronic bronchitis. Prior Injury, Same Area. Sprain. --04:03 Rhina Sung R.N. ADDITIONAL SURGERIES: Knee Surgery. --04:03 Rhina Sung R.N. Interventions ID band on patient. To treatment room. --04:05 Rhina Sung R.N. PHYSICAL ASSESSMENT pt states pain radiates from RLQ to right flank. Ambulatory to room. GENERAL / NEURO / PSYCH: Alert. Oriented X 4. Appears in pain. HEENT: Mucous membranes are pink. RESPIRATORY: Respirations not labored. SKIN: Skin is warm and dry. --04:06 Rhina Sung R.N. NURSING PROGRESS NOTES Patient gowned. Head of bed elevated. Two patient identifiers checked. Call light placed in reach. Side rails up x 1. Bed placed in lowest position. Brakes of bed on. Patient ready for evaluation. --04:05 Rhina Sung R.N. 04:28 05/20/2016 Toradol (Ketorolac Tromethamine) IM 60 mg given. Given in the left anterior lateral thigh. Allergies verified and confirmed 5 rights. --04:28 Rhina Sung R.N. 04:28 05/20/2016 Dilaudid (HYDROmorphone HCl PF) IM 1 mg given. Given in the right anterior lateral thigh. Allergies verified, confirmed 5 rights and sedative warning given to the patient. --04:28 Rhina Sung R.N. 04:29 05/20/2016 Phenergan (Promethazine HCl) IM 25 mg given. Given in the right anterior lateral thigh. Allergies verified, confirmed 5 rights and sedative warning given to the patient. --04:29 Rhina Sung R.N. DISPOSITION / DISCHARGE Departure time: 445. Condition at departure: improved. No learning barriers present. Discharge instructions provided and reviewed with the patient. Reviewed medication(s). Prescription(s) given to the patient (Tylenol, Ibuprofen, Flomax, Percocet). Patient verbalized understanding. Written instructions provided in Sinhala. The patient was discharged by the physician. He was discharged home and accompanied by family. He left the Emergency Department ambulatory and via private vehicle. Family member driving. Medication list reviewed and validated with the patient. --04:53 Rhina Sung R.N. 04:46 05/20/16. BP: 175/85. HR: 90. RR: 20 (unlabored). O2 saturation: 96% on room air. Temp: deferred. Pain level now: 04/10. --04:53 Rhina Sung R.N. Locked/Released at 05/20/2016 4:54 by Rhina Sung R.N.
--- NOTE | 2016-05-20 04:24 | ED CLINICAL REPORT ---
Clinical Report - Physicians/Mid Levels [facility] [address] [place] [address] 05/20/2016 3:53 Patient: HI BORJA Time Seen: 03:59. Arrived- By private vehicle. Historian- patient. HISTORY OF PRESENT ILLNESS Chief Complaint: FLANK PAIN. It is described as "pain" and it is described as located in the right flank and the right abdomen and right lower quadrant and radiating to the right lower quadrant of the abdomen. This started about 5 hours ago and is still present. It was gradual in onset and has been waxing/waning. At its maximum, severity described as severe. When seen in the E.D., severity described as moderate. Modifying factors. Not worsened by anything. Not relieved by anything. No vomiting or diarrhea. (Pt with recently passed stone -- symptoms resolved, only to return tonight). Similar symptoms previously: ( On 05/16/16 he likely passed a kidney stone - CT reveals stone and UA c/w stone, but no signs of UTI. Also similar presentation to [facility] ED on 02/25/[address] proven stone). Recent medical care: The patient was seen recently at this facility in the emergency department. Evaluation/treatment: urinalysis. Diagnosis: kidney stone. REVIEW OF SYSTEMS No constipation, black stools, hematemesis, pain with urination or urinary frequency. No bloody stools, fever, headache, sore throat or chest pain. No difficulty breathing or cough. The patient has had back pain. All systems otherwise negative, except as recorded above. PAST HISTORY Has had urinary calculi with renal colic (has had 2 prior abd/pelvis CT's. Bronchitis. Chronic bronchitis. Obesity Surgeries: Knee Surgery. SOCIAL HISTORY Former smoker. No alcohol use or drug use. ADDITIONAL NOTES The nursing notes have been reviewed. PHYSICAL EXAM Vital Signs: 05/20/2016 04:01 BP: 168/99. HR: 95. RR: 20. O2 saturation: 98%. Temp: 98.7 F. Pain level now: 1010. Appearance: Alert. Oriented X3. Patient in mild distress. Eyes: No scleral icterus or pale conjunctivae. ENT: Pharynx normal. No pharyngeal erythema or tonsillar exudate. Neck: Normal inspection. Neck supple. CVS: Normal heart rate and rhythm. Heart sounds normal. Pulses normal. Respiratory: No respiratory distress. Breath sounds normal. Abdomen: Soft and nontender. No mass. Obese. No rebound tenderness or guarding. Back: Normal inspection. Moderate CVA tenderness on the right. Skin: Skin warm and dry. Normal skin color. Normal skin turgor. Moderate skin rash (psoriaform rash on post elbows and face). Extremities: Extremities exhibit normal ROM. No lower extremity edema. Neuro: Oriented X 3. No motor deficit. LABS, X-RAYS, AND EKG Pulse Oximetry: 05/20/2016 04:01 O2 saturation: 98%. (FIO2 - room air). Interpretation: normal. Note - Tests: (CT abd/pelivs without contrast (done 05/16/16): IMPRESSION: 1. 3 mm proximal right ureteral calculus with mild right hydronephrosis 2. Nonobstructing bilateral renal calculi 3. Hepatic steatosis). PROGRESS AND PROCEDURES Course of Care: Toradol 60mg IM given. Dilaudid 1 mg with Phenergan 25 mg IM given. Patient is stable. Physical exam findings are improved. Symptoms much better. Pt with h/o kidney stones with similar pain. I will hold CT per "Choosing Wisely" guidelines. Pt informed that he will need urology if not improving as expected (as he has in the past) - he is aware that there is no urology service at [facility]. Patient/family counseled. Old ED records reviewed. Disposition: Discharged. Condition: stable and improved. CLINICAL IMPRESSION Ureterolithiasis (single stone) in the right ureter with renal colic. Essential hypertension. Morbid obesity (BMI >=40) due to excess calories. INSTRUCTIONS Do not work for three days. Drink plenty of fluids. No alcohol until released. Warnings: Further evaluation is necessary. SEDATIVE MEDICATION: You were given sedative medication during your visit. Do not drive or operate dangerous machinery. CONTROLLED SUBSTANCE WARNINGS. GENERAL WARNINGS: Return or contact your physician immediately if your condition worsens or changes unexpectedly, if not improving as expected, or if other problems arise. Your Current Medications: CONTINUE TAKING THE FOLLOWING MEDICATIONS: Excedrin Migraine Oral : prn. Prescription Medications: Ibuprofen 800 mg tablets: take 1 tablet orally every 8 hours as needed for pain. Dispense thirty (30). No refills. Percocet 5 mg/325 mg: take 1 tablet orally every 6 hours as needed for pain. Dispense fifteen (15). No refills. Substitution is permissible. Flomax 0.4 mg: take 1 orally every 24 hours. Dispense ten (10). No refills. Substitution is permissible. OTC Medications: Take acetaminophen (Tylenol, Datril, etc.) according to label instructions. Available over the counter. Follow-up: Follow up with your doctor tomorrow. Follow up with a urologist tomorrow. Screening today revealed the patient's blood pressure to be in the hypertensive range. The patient should follow up with a primary care provider for blood pressure management. (Electronically signed by Pablo Cunningham DO 05/20/2016 6:25)
--- NOTE | 2016-05-20 04:24 | ED NURSING NOTES ---
Clinical Report - Nurses [place] [place] [address] 05/20/2016 3:53 Patient: HI BORJA TRIAGE Triage time 0401. Acuity: LEVEL 3. ANDREE COMA SCORE: Andree Coma Scale: 15- eyes open spontaneously (4); best verbal response- oriented x 4 (5); best motor response- obeys commands (6). --04:05 Rhina Sung R.N. 04:01 05/20/16. BP: 168/99. HR: 95. RR: 20 (unlabored). O2 saturation: 98% on room air. Temp: 98.7 F (oral). Pain level now: 01/08. --04:05 Rhina Sung R.N. Triage time 0401. Chief Complaint: (possible kidney stone). --04:53 Rhina Sung R.N. Weight: 145.1 kg estimated. Height/Length: 70 inches Per Patient. BMI: 45.9. --04:00 Rhina Sung R.N. Medications Excedrin Migraine Oral, as needed. --04:03 Rhina Sung R.N. Allergies No Known Drug Allergy. --04:03 Rhina Sung R.N. Medication/allergy information source: the patient. --04:05 Rhina Sung R.N. History Arrived by private vehicle. Historian: patient. Accompanied by family. Primary physician (none). ( pt c/o right flank pain since 10 pm last night. pt treated 4 days ago for a kidney stone. pt states he figured the stone had passed since all of his symptoms subsided on Saturday.). This started last night. Treatment SIZE MAKER: (oxycodone). SOCIAL HX: Never smoker. No alcohol use or drug use. ABUSE ASSESSMENT: No report of abuse. FALL RISK ASSESSMENT: Fall risk assessment completed. No fall risk identified. NUTRITIONAL RISK ASSESSMENT: The nutritional risk assessment revealed no deficiencies. FUNCTIONAL ASSESSMENT: Functional assessment: no impairments noted. LEARNING NEEDS ASSESSMENT: The learning needs assessment revealed no barriers. SKIN INTEGRITY ASSESSMENT: Skin integrity risk assessment completed. No skin integrity risk identified. --04:05 Rhina Sung R.N. PROBLEMS: Ureterolithiasis. Urinary Calculi. Renal Colic. Bronchitis. Chronic bronchitis. Prior Injury, Same Area. Sprain. --04:03 Rhina Sung R.N. ADDITIONAL SURGERIES: Knee Surgery. --04:03 Rhina Sung R.N. Interventions ID band on patient. To treatment room. --04:05 Rhina Sung R.N. PHYSICAL ASSESSMENT pt states pain radiates from RLQ to right flank. Ambulatory to room. GENERAL / NEURO / PSYCH: Alert. Oriented X 4. Appears in pain. HEENT: Mucous membranes are pink. RESPIRATORY: Respirations not labored. SKIN: Skin is warm and dry. --04:06 Rhina Sung R.N. NURSING PROGRESS NOTES Patient gowned. Head of bed elevated. Two patient identifiers checked. Call light placed in reach. Side rails up x 1. Bed placed in lowest position. Brakes of bed on. Patient ready for evaluation. --04:05 Rhina Sung R.N. 04:28 05/20/2016 Toradol (Ketorolac Tromethamine) IM 60 mg given. Given in the left anterior lateral thigh. Allergies verified and confirmed 5 rights. --04:28 Rhina Sung R.N. 04:28 05/20/2016 Dilaudid (HYDROmorphone HCl PF) IM 1 mg given. Given in the right anterior lateral thigh. Allergies verified, confirmed 5 rights and sedative warning given to the patient. --04:28 Rhina Sung R.N. 04:29 05/20/2016 Phenergan (Promethazine HCl) IM 25 mg given. Given in the right anterior lateral thigh. Allergies verified, confirmed 5 rights and sedative warning given to the patient. --04:29 Rhina Sung R.N. DISPOSITION / DISCHARGE Departure time: 445. Condition at departure: improved. No learning barriers present. Discharge instructions provided and reviewed with the patient. Reviewed medication(s). Prescription(s) given to the patient (Tylenol, Ibuprofen, Flomax, Percocet). Patient verbalized understanding. Written instructions provided in Portuguese. The patient was discharged by the physician. He was discharged home and accompanied by family. He left the Emergency Department ambulatory and via private vehicle. Family member driving. Medication list reviewed and validated with the patient. --04:53 Rhina Sung R.N. 04:46 05/20/16. BP: 175/85. HR: 90. RR: 20 (unlabored). O2 saturation: 96% on room air. Temp: deferred. Pain level now: 04/10. --04:53 Rhina Sung R.N. Locked/Released at 05/20/2016 4:54 by Rhina Sung R.N.
--- NOTE | 2016-05-20 06:25 | ED MED RECONCILIATION SUMMARY ---
Patient: HI BORJA Medication Reconciliation Report [facility] VisitID: [id number] [address] [place] [address] 40y, M Registration Date/Time: 05/20/2016 Weight: 145.1 kg Height/Length: 70 in. BMI: 45.9 ALLERGIES: No Known Drug Allergy The patient's Home Medications are listed below: CONTINUE TAKING THE FOLLOWING MEDICATIONS: Excedrin Migraine Oral The source(s) of the original Home Medication information: patient The following Medications were given to the patient in the Emergency Department: Toradol [IM] IM 60 mg, administered: 05/20/2016 4:28:00 AM Dilaudid [IM] IM 1 mg, administered: 05/20/2016 4:28:00 AM Phenergan [IM] IM 25 mg, administered: 05/20/2016 4:29:00 AM The following Medications were prescribed to the patient: Take acetaminophen (Tylenol, Datril, etc.) according to label instructions. Available over the counter. -- Pablo Cunningham DO Ibuprofen 800 mg tablets: take 1 tablet orally every 8 hours as needed for pain. Dispense thirty (30). No refills. -- Pablo Cunningham DO Percocet 5 mg/325 mg: take 1 tablet orally every 6 hours as needed for pain. Dispense fifteen (15). No refills. Substitution is permissible. -- Pablo Cunningham DO Flomax 0.4 mg: take 1 orally every 24 hours. Dispense ten (10). No refills. Substitution is permissible. -- Pablo Cunningham DO
--- NOTE | 2016-05-20 06:25 | ED DISCHARGE INSTRUCTIONS ---
Patient: HI BORJA General Instructions [facility] VisitID: [id number] [address] [place] [address] 40y, M Registration Date/Time: 05/20/2016 Ureterolithiasis (single stone) in the right ureter with renal colic. Essential hypertension. Morbid obesity (BMI >=40) due to excess calories. INSTRUCTIONS Do not work for three days. Drink plenty of fluids. No alcohol until released. Warnings: Further evaluation is necessary. SEDATIVE MEDICATION: You were given sedative medication during your visit. Do not drive or operate dangerous machinery. CONTROLLED SUBSTANCE WARNINGS. GENERAL WARNINGS: Return or contact your physician immediately if your condition worsens or changes unexpectedly, if not improving as expected, or if other problems arise. Your Current Medications: CONTINUE TAKING THE FOLLOWING MEDICATIONS: Excedrin Migraine Oral : prn. Prescription Medications: Ibuprofen 800 mg tablets: take 1 tablet orally every 8 hours as needed for pain. Dispense thirty (30). No refills. Percocet 5 mg/325 mg: take 1 tablet orally every 6 hours as needed for pain. Dispense fifteen (15). No refills. Substitution is permissible. Flomax 0.4 mg: take 1 orally every 24 hours. Dispense ten (10). No refills. Substitution is permissible. OTC Medications: Take acetaminophen (Tylenol, Datril, etc.) according to label instructions. Available over the counter. Follow-up: Follow up with your doctor tomorrow. Follow up with a urologist tomorrow. Screening today revealed the patient's blood pressure to be in the hypertensive range. The patient should follow up with a primary care provider for blood pressure management. ADDITIONAL INFORMATION Kidney Stone (W/ Colic) The sharp cramping pain and nausea/vomiting that you have is due to a small stone which has formed in the kidney and is now passing down a narrow tube (ureter) on its way to your bladder. Once it reaches your bladder, the pain will stop. The stone may pass in your urine stream in one piece. [The size may be 1/16" to 1/4" (1-6mm)]. Or, the stone may also break up into leandra fragments which you may not even notice. Once you have had a kidney stone, you are at risk for developing another one in the future. Home Care: Drink plenty of fluids (at least 8 to 10 glasses of water a day). Most stones will pass on their own, but may take from a few hours to a few days. Sometimes the stone is too large to pass by itself and special methods will have to be used to remove the stone. Each time you urinate, do so in a jar. Pour the urine from the jar through the strainer and into the toilet. Continue doing this until 24 hours after your pain stops. By then, if there was a kidney stone, it should pass from your bladder. Some stones dissolve into sand-like particles and pass right through the strainer. In that case, you wont ever see a stone. Save any stone that you find in the strainer and bring it to your doctor for analysis. It may be possible to prevent certain types of stones from forming. Therefore, it is important to know what kind of stone you have. Try to stay as active as possible since this will help the stone pass. Do not stay in bed unless your pain prevents you from getting up. You may notice a red, pink or brown color to your urine. This is normal while passing a kidney stone. Follow Up with your doctor or return to this facility if the pain lasts more than 48 hours. Get Prompt Medical Attention if any of the following occur: Pain that is not controlled by the medicine given Repeated vomiting or unable to keep down fluids Weakness, dizziness or fainting Fever of 100.4F (38C) or higher, or as directed by your healthcare provider Passage of solid red or brown urine (can't see through it) or urine with lots of blood clots Unable to pass urine for 8 hours and increasing bladder pressure High Blood Pressure -- To Be Confirmed [No Tx] Your blood pressure was higher today than normal. Sometimes anxiety or pain can cause a temporary rise in blood pressure that later returns to normal. If your blood pressure is high on one measurement, this does not mean that you have hypertension (a chronic illness). However, you must have your blood pressure measured again within the next few days to find out if its still high. A normal blood pressure is 120/80 or less. The first (top) number is the "systolic" pressure. The second (bottom) number is the "diastolic" pressure. Hypertension exists when either the top number is 140 or higher, OR the bottom number is 90 or higher on repeated measurements. Blood pressure in the range of 120-140 (systolic) or 80-89 (diastolic) is considered "pre-hypertension". This means your are at risk for getting hypertension. You should have regular blood pressure checks to be sure your blood pressure is not rising. Home Care: Measure your blood pressure on 3 different days and write down the results. This can be done at your doctor's office or this facility. Some pharmacies and grocery stores offer automated blood pressure machines for your use. Follow Up: If your blood pressure is "high" (over 120/80) on 2 out of 3 days, you will need to follow up with your doctor for further evaluation and treatment. DO NOT PUT THIS OFF! Untreated high blood pressure increases the risk for heart attack, also known as acute myocardial infarction, or AMI, and stroke. It is a treatable condition. Get Prompt Medical Attention if any of the following occur: Chest pain or shortness of breath Severe headache Throbbing or rushing sound in the ears Nosebleed Sudden severe abdominal pain Extreme drowsiness, confusion or fainting Dizziness or vertigo (dizziness with spinning sensation) Weakness of an arm or leg or one side of the face Difficulty with speech or vision Ibuprofen Oral tablet What is this medicine? IBUPROFEN (eye BYOO proe fen) is a non-steroidal anti-inflammatory drug (NSAID). It is used for dental pain, fever, headaches or migraines, osteoarthritis, rheumatoid arthritis, or painful monthly periods. It can also relieve minor aches and pains caused by a cold, flu, or sore throat. How should I use this medicine? Take this medicine by mouth with a glass of water. Follow the directions on the prescription label. Take this medicine with food if your stomach gets upset. Try to not lie down for at least 10 minutes after you take the medicine. Take your medicine at regular intervals. Do not take your medicine more often than directed. A special MedGuide will be given to you by the pharmacist with each prescription and refill. Be sure to read this information carefully each time. Talk to your iron bender regarding the use of this medicine in children. Special care may be needed. What side effects may I notice from receiving this medicine? Side effects that you should report to your doctor or health critical care technician as soon as possible: allergic reactions like skin rash, itching or hives, swelling of the face, lips, or tongue black or bloody stools, blood in the urine or in vomit breathing problems changes in vision chest pain general ill feeling or flu-like symptoms nausea or vomiting redness, blistering, peeling or loosening of the skin, including inside the mouth slurred speech or weakness on one side of the body stomach pain unexplained weight gain or swelling unusually weak or tired yellowing of eyes or skin Side effects that usually do not require medical attention (report to your doctor or health critical care technician if they continue or are bothersome): constipation or diarrhea dizziness gas or heartburn stomach upset What may interact with this medicine? Do not take this medicine with any of the following medications: cidofovir ketorolac methotrexate pemetrexed This medicine may also interact with the following medications: alcohol aspirin diuretics lithium other drugs for inflammation like prednisone warfarin What if I miss a dose? If you miss a dose, take it as soon as you can. If it is almost time for your next dose, take only that dose. Do not take double or extra doses. Where should I keep my medicine? Keep out of the reach of children. Store at room temperature between 15 and 30 degrees C (59 and 86 degrees F). Keep container tightly closed. Throw away any unused medicine after the expiration date. What should I tell my health care provider before I take this medicine? They need to know if you have any of these conditions: asthma cigarette smoker drink more than 3 alcohol containing drinks a day heart disease or circulation problems such as heart failure or leg edema (fluid retention) high blood pressure kidney disease liver disease stomach bleeding or ulcers an unusual or allergic reaction to ibuprofen, aspirin, other NSAIDS, other medicines, foods, dyes, or preservatives or trying to get breast-feeding What should I watch for while using this medicine? Tell your doctor or healthcare professional if your symptoms do not start to get better or if they get worse. This medicine does not prevent heart attack or stroke. In fact, this medicine may increase the chance of a heart attack or stroke. The chance may increase with longer use of this medicine and in people who have heart disease. If you take aspirin to prevent heart attack or stroke, talk with your doctor or health critical care technician. Do not take other medicines that contain aspirin, ibuprofen, or naproxen with this medicine. Side effects such as stomach upset, nausea, or ulcers may be more likely to occur. Many medicines available without a prescription should not be taken with this medicine. This medicine can cause ulcers and bleeding in the stomach and intestines at any time during treatment. Ulcers and bleeding can happen without warning symptoms and can cause . To reduce your risk, do not smoke cigarettes or drink alcohol while you are taking this medicine. You may get drowsy or dizzy. Do not drive, use machinery, or do anything that needs mental alertness until you know how this medicine affects you. Do not stand or sit up quickly, especially if you are an older patient. This reduces the risk of dizzy or fainting spells. This medicine can cause you to bleed more easily. Try to avoid damage to your teeth and gums when you brush or floss your teeth. Oxycodone Hydrochloride, Acetaminophen Oral tablet What is this medicine? ACETAMINOPHEN; OXYCODONE (a set a SILVINA dominique fen; ox i KOE done) is a pain reliever. It is used to treat mild to moderate pain. How should I use this medicine? Take this medicine by mouth with a full glass of water. Follow the directions on the prescription label. Take your medicine at regular intervals. Do not take your medicine more often than directed. Talk to your iron bender regarding the use of this medicine in children. Special care may be needed. Patients over 65 years old may have a stronger reaction and need a smaller dose. What side effects may I notice from receiving this medicine? Side effects that you should report to your doctor or health critical care technician as soon as possible: allergic reactions like skin rash, itching or hives, swelling of the face, lips, or tongue breathing difficulties, wheezing confusion light headedness or fainting spells severe stomach pain yellowing of the skin or the whites of the eyes Side effects that usually do not require medical attention (report to your doctor or health critical care technician if they continue or are bothersome): dizziness drowsiness nausea vomiting What may interact with this medicine? alcohol antihistamines barbiturates like amobarbital, butalbital, butabarbital, methohexital, pentobarbital, phenobarbital, thiopental, and secobarbital benztropine drugs for bladder problems like solifenacin, trospium, oxybutynin, tolterodine, hyoscyamine, and methscopolamine drugs for breathing problems like ipratropium and tiotropium drugs for certain stomach or intestine problems like propantheline, homatropine methylbromide, glycopyrrolate, atropine, belladonna, and dicyclomine general anesthetics like etomidate, ketamine, nitrous oxide, propofol, desflurane, enflurane, halothane, isoflurane, and sevoflurane medicines for depression, anxiety, or psychotic disturbances medicines for sleep muscle relaxants naltrexone narcotic medicines (opiates) for pain phenothiazines like perphenazine, thioridazine, chlorpromazine, mesoridazine, fluphenazine, prochlorperazine, promazine, and trifluoperazine scopolamine tramadol trihexyphenidyl What if I miss a dose? If you miss a dose, take it as soon as you can. If it is almost time for your next dose, take only that dose. Do not take double or extra doses. Where should I keep my medicine? Keep out of the reach of children. This medicine can be abused. Keep your medicine in a safe place to protect it from theft. Do not share this medicine with anyone. Selling or giving away this medicine is dangerous and against the law. Store at room temperature between 20 and 25 degrees C (68 and 77 degrees F). Keep container tightly closed. Protect from light. This medicine may cause accidental overdose and if it is taken by other adults, children, or pets. Flush any unused medicine down the toilet to reduce the chance of harm. Do not use the medicine after the expiration date. What should I tell my health care provider before I take this medicine? They need to know if you have any of these conditions: brain tumor Crohn's disease, inflammatory bowel disease, or ulcerative colitis drink more than 3 alcohol containing drinks per day drug abuse or addiction head injury heart or circulation problems kidney disease or problems going to the bathroom liver disease lung disease, asthma, or breathing problems an unusual or allergic reaction to acetaminophen, oxycodone, other opioid analgesics, other medicines, foods, dyes, or preservatives or trying to get breast-feeding What should I watch for while using this medicine? Tell your doctor or health critical care technician if your pain does not go away, if it gets worse, or if you have new or a different type of pain. You may develop tolerance to the medicine. Tolerance means that you will need a higher dose of the medication for pain relief. Tolerance is normal and is expected if you take this medicine for a long time. Do not suddenly stop taking your medicine because you may develop a severe reaction. Your body becomes used to the medicine. This does NOT mean you are addicted. Addiction is a behavior related to getting and using a drug for a non-medical reason. If you have pain, you have a medical reason to take pain medicine. Your doctor will tell you how much medicine to take. If your doctor wants you to stop the medicine, the dose will be slowly lowered over time to avoid any side effects. You may get drowsy or dizzy. Do not drive, use machinery, or do anything that needs mental alertness until you know how this medicine affects you. Do not stand or sit up quickly, especially if you are an older patient. This reduces the risk of dizzy or fainting spells. Alcohol may interfere with the effect of this medicine. Avoid alcoholic drinks. There are different types of narcotic medicines (opiates) for pain. If you take more than one type at the same time, you may have more side effects. Give your health care provider a list of all medicines you use. Your doctor will tell you how much medicine to take. Do not take more medicine than directed. Call emergency for help if you have problems breathing. The medicine will cause constipation. Try to have a bowel movement at least every 2 to 3 days. If you do not have a bowel movement for 3 days, call your doctor or health critical care technician. Do not take Tylenol (acetaminophen) or medicines that have acetaminophen with this medicine. Too much acetaminophen can be very dangerous. Many nonprescription medicines contain acetaminophen. Always read the labels carefully to avoid taking more acetaminophen. You have been given the following additional information: Kidney Stone W/ Colic Hypertension, To Be Confirmed Ibuprofen Oral tablet Oxycodone Hydrochloride, Acetaminophen Oral tablet Do not work for three days. (Electronically signed by Pablo Cunningham DO 05/20/2016 6:25)
--- NOTE | 2016-05-20 06:25 | ED MED RECONCILIATION SUMMARY ---
Patient: HI BORJA Medication Reconciliation Report [facility] VisitID: [id number] [address] [place] [address] 40y, M Registration Date/Time: 05/20/2016 Weight: 145.1 kg Height/Length: 70 in. BMI: 45.9 ALLERGIES: No Known Drug Allergy The patient's Home Medications are listed below: CONTINUE TAKING THE FOLLOWING MEDICATIONS: Excedrin Migraine Oral The source(s) of the original Home Medication information: patient The following Medications were given to the patient in the Emergency Department: Toradol [IM] IM 60 mg, administered: 05/20/2016 4:28:00 AM Dilaudid [IM] IM 1 mg, administered: 05/20/2016 4:28:00 AM Phenergan [IM] IM 25 mg, administered: 05/20/2016 4:29:00 AM The following Medications were prescribed to the patient: Take acetaminophen (Tylenol, Datril, etc.) according to label instructions. Available over the counter. -- Pablo Cunningham DO Ibuprofen 800 mg tablets: take 1 tablet orally every 8 hours as needed for pain. Dispense thirty (30). No refills. -- Pablo Cunningham DO Percocet 5 mg/325 mg: take 1 tablet orally every 6 hours as needed for pain. Dispense fifteen (15). No refills. Substitution is permissible. -- Pablo Cunningham DO Flomax 0.4 mg: take 1 orally every 24 hours. Dispense ten (10). No refills. Substitution is permissible. -- Pablo Cunningham DO
--- NOTE | 2016-05-20 06:25 | ED MAR SUMMARY ---
..... Medication Administration Record [facility] [address] [place] [address] Patient: HI BORJA Visit ID: [id number] 40y, M Weight: 145.1 kg Height/Length: 70 in BMI: 45.9 ALLERGIES: No Known Drug Allergy Given 04:05/20/2016 Rhina Sung RSachiN. Medication Administered: TORADOL [IM] (KETOROLAC TROMETHAMINE), Dose: 60 mg IM. Medication Ordered: Toradol IM 60 mg (NOW). Given 04:05/20/2016 Rhina Sung, R.N. Medication Administered: DILAUDID [IM] (HYDROMORPHONE HCL PF), Dose: 1 mg IM. Medication Ordered: Dilaudid IM 1 mg (NOW). Given 04:05/20/2016 Rhina Sung, R.N. Medication Administered: PHENERGAN [IM] (PROMETHAZINE HCL), Dose: 25 mg IM. Medication Ordered: Phenergan IM 25 mg (HIGH ALERT MEDICATION, NOW).
--- NOTE | 2016-05-20 06:25 | ED MAR SUMMARY ---
..... Medication Administration Record [facility] [address] [place] [address] Patient: HI BORJA Visit ID: [id number] 40y, M Weight: 145.1 kg Height/Length: 70 in BMI: 45.9 ALLERGIES: No Known Drug Allergy Given 04:05/20/2016 Rhina Sung RSachiN. Medication Administered: TORADOL [IM] (KETOROLAC TROMETHAMINE), Dose: 60 mg IM. Medication Ordered: Toradol IM 60 mg (NOW). Given 04:05/20/2016 Rhina Sung, R.N. Medication Administered: DILAUDID [IM] (HYDROMORPHONE HCL PF), Dose: 1 mg IM. Medication Ordered: Dilaudid IM 1 mg (NOW). Given 04:05/20/2016 Rhina Sung, R.N. Medication Administered: PHENERGAN [IM] (PROMETHAZINE HCL), Dose: 25 mg IM. Medication Ordered: Phenergan IM 25 mg (HIGH ALERT MEDICATION, NOW).
== END 2016-05-20 04:50 | disposition home or self-care (01) ==
LOC: ED SRH 03:54
DX: N20.1 Calculus of ureter (principal); I10 Essential (primary) hypertension; E66.01 Morbid (severe) obesity due to excess calories; Z68.41 Body mass index [BMI] 40.0-44.9, adult

== ENCOUNTER 2016-09-18 20:59 | Emergency (ER) | payer OTHER ==
--- NOTE | 2016-09-18 22:32 | DIAGNOSTIC IMAGING REPORT ---
PROCEDURE: CT ABDOMEN/PELVIS W/O CONTRAST INDICATION: Right flank pain. TECHNIQUE: Noncontrast axial images with sagittal and coronal reformations. COMPARISON: Compared CT abdomen and pelvis on 05/16/2016. FINDINGS: ABDOMEN: There is mild to moderate right hydronephrosis and hydroureter secondary to a 4 mm right distal ureteral calculus (located 1.5 cm above the ureteral vesicle junction). There are two other smaller (0.5 mm) nonobstructing calculi in the upper lower pole right kidney. There are two 3 mm and 4 mm nonobstructing calculi in the mid left kidney which is otherwise normal. Gallbladder, liver, spleen, pancreas, and aorta are normal. Bowel pattern is normal. PELVIS: Prostate is of normal size 94.2 cm) with central dystrophic calcification. Pelvic structures are normal. IMPRESSION: 1. Mild to moderate right hydronephrosis and hydroureter secondary to a 4 mm right distal ureteral calculus (located 1.5 cm above the ureteral vesicle junction). 2. There are two nonobstructing right renal calculi (0.5 mm). 3. There two nonobstructing left renal calculi (3-4 mm). 4. Findings discussed with Dr. Jori Price. All CT scans at this facility use dose modulation, iterative reconstruction, and/or weight-based dosing when appropriate to reduce radiation dose to as low as reasonably achievable.
--- NOTE | 2016-09-18 22:59 | ED ORDER SUMMARY ---
..... Patient: HI BORJA OrderSheet [facility] VisitID: [id number] [place] [address] 40y, M Registration Date/Time: 09/18/2016 ORDER SHEET Weight: 136.0 kg (stated) Allergies: None GENERAL ORDERS: CT Abd/Pel wo Cont (Right) Urgent (21:47 09/18/2016 Radha Mclean) (Ack 21:49 AMcQuoid ER Tech1) (22:05 MCampbell) CBC w Diff Urgent (21:47 09/18/2016 Radha Mclean) (Ack 21:49 AMcQuoid ER Tech1) (22:12 KPasamreen-Joyce R.N.) CMP Urgent (21:47 09/18/2016 Radha Mclean) (Ack 21:49 AMcQuoid ER Tech1) (22:12 KPasamreen-Joyce R.N.) UA-Culture if indicated Urgent (21:47 09/18/2016 Radha Mclean) (Ack 21:49 AMcQuoid ER Tech1) (22:12 KPasamreen-Cliffn R.N.) MEDICATION ORDERS: Flomax PO 0.4 mg (Do not crush or chew, NOW) (22:58 09/18/2016 Radha Mclean) IV FLUIDS: IV NS : initial bolus none -, then 1000 mL/hr for X1 (NOW) (21:46 09/18/2016 Radha Mclean) (22:12 Violet R.N.) Toradol IV 30 mg (NOW) (21:46 09/18/2016 Radha Mclean) (21:54 Alvaro R.N.) Zofran IV 4 mg (NOW) (21:46 09/18/2016 Radha Mclean) (21:54 Alvaro R.N.) Dilaudid IV 1 mg (HIGH ALERT MEDICATION, NOW) (22:37 09/18/2016 Radha Mclean) (Ack 22:38 Violet R.N.) ORDER SHEET NOTES: This document has not been locked and should not be saved in the medical record.
--- NOTE | 2016-09-18 22:59 | ED NURSING NOTES ---
Clinical Report - Nurses [facility] [address] [place] [address] 09/18/2016 20:59 Patient: HI BORJA TRIAGE Triage time 21:34. Acuity: LEVEL 3. Chief Complaint: ABDOMINAL PAIN and URINARY FREQUENCY and FLANK PAIN. ANDREE COMA SCORE: Andree Coma Scale: 15- eyes open spontaneously (4); best verbal response- oriented x 4 (5); best motor response- obeys commands (6). --21:42 Mariah Pollack R.N. 21:34 09/18/16. BP: 202/114. HR: 92. RR: 18. O2 saturation: 97%. Temp: 99.1 F. Pain level now: 01/08. Additional comments: pt states pain is "off the chart". RLQ/ right flank. --21:42 Mariah Pollack R.N. Weight: 136 kg stated. Height/Length: 70 inches Per Patient. BMI: 43. --21:40 Mariah Pollack R.N. Medications None. --21:37 Mariah Pollack R.N. Allergies None. --21:37 Mariah Pollack R.N. History Arrived by private vehicle. Historian: patient. ( Pt states he is having right sided flank/lower abdominal pain, states that he has had several cases of kidney stones in the past and this feels the same. Symptoms started today about noon.). He has had nausea. Treatment APPLICATION PACKAGER: None. PAST MEDICAL HX: Gastroesophageal reflux disease. Immunizations: status is unknown. SOCIAL HX: Former smoker, end date 2010. FALL RISK ASSESSMENT: Fall risk assessment completed. No fall risk identified. NUTRITIONAL RISK ASSESSMENT: The nutritional risk assessment revealed no deficiencies. FUNCTIONAL ASSESSMENT: Functional assessment: no impairments noted. LEARNING NEEDS ASSESSMENT: The learning needs assessment revealed no barriers. SKIN INTEGRITY ASSESSMENT: Skin integrity risk assessment completed. No skin integrity risk identified. --21:42 Mariah Pollack R.N. PROBLEMS: Obesity. Hypertension. Ureterolithiasis. Urinary Calculi. Renal Colic. Bronchitis. Chronic bronchitis. Sprain. --21:38 Mariah Pollack R.N. Assessment The patient states feels the same. --21:42 Mariah Pollack R.N. Interventions ID band on patient. To treatment room. --21:42 Mariah Pollack R.N. NURSING PROGRESS NOTES 21:40 09/18/2016 Site #1 started via IV in the left hand with an 20g angiocath; one attempt. Blood drawn: rainbow set. Labeled in the presence of the patient and sent to the lab. Saline lock flushed with 10 mL saline. --21:45 Donnie Munguia R.N. Monitoring of patient in place. Reassurance given. Patient identifiers checked. Call light placed in reach. Side rails up. Bed placed in lowest position. Brakes of bed on. --21:47 Donnie Munguia R.N. 21:49 09/18/2016 Toradol IVP 30 mg given over 2 minute(s) via site #1. Allergies verified and confirmed 5 rights. IV patency established. IV site checked: no pain, redness, or swelling. IV flushed thoroughly pre- and post-medication administration. IVP given by RN. --21:54 Harpreet Schmidt R.N. 21:49 09/18/2016 Zofran (Ondansetron HCl) IVP 4 mg given over 1 minute(s) via site #1. Allergies verified and confirmed 5 rights. IV patency established. IV site checked: no pain, redness, or swelling. IV flushed thoroughly pre- and post-medication administration. IVP given by RN. --21:54 Harpreet Schmidt R.N. 22:02 09/18/2016 Started bag #1 1000 mL IV Fluids IV NS (Saline); at 1000 mL/hr via site #1. Allergies verified and confirmed 5 rights. IV patency established. IV site checked: no pain, redness, or swelling. IV flushed thoroughly pre- and post-medication administration. --22:12 Donnie Munguia R.N. Reassurance given. Patient ID band checked for patient name and birthdate: patient confirmed urine collected with return of yellow-colored urine; sample sent to lab for urinalysis. Specimen labeled in the presence of the patient. Patient identifiers checked. Call light placed in reach. Side rails up. Bed placed in lowest position. Brakes of bed on. ( pt reports minimal relief after pain meds. pain 7-8/10, ivf infusing as ordered, urine sent, pt voided blake 30ml dark yellow urine). --22:14 Donnie Munguia R.N. 21:44 09/18/16. BP: 189/120 (large adult cuff) taken on the left arm, manually, while lying. --22:45 Elizabeth Taylor 22:53 09/18/2016 Dilaudid (HYDROmorphone HCl PF) IVP 1 mg given. via site #1. Allergies verified, confirmed 5 rights and sedative warning given to the patient. IV patency established. IV site checked: no pain, redness, or swelling. IV flushed thoroughly pre- and post-medication administration. --23:03 Donnie Munguia R.N. 23:07 09/18/16. BP: 143/87 taken on the right arm, via an automated monitor, while sitting. HR: 87. O2 saturation: 95% on room air. --23:08 Elizabeth Taylor 23:15 09/18/2016 IV Fluids IV NS Discontinued: upon discharge. Total amount infused: 1000 mL. IV patency established. IV site checked: no pain, redness, or swelling. IV flushed thoroughly. --23:25 Donnie Munguia R.N. 23:17 09/18/2016 Flomax (Tamsulosin HCl) PO 0.4 mg given. Allergies verified and confirmed 5 rights. --23:22 Donnie Munguia R.N. DISPOSITION / DISCHARGE No learning barriers present. Discharge instructions provided and reviewed with the patient. Reviewed medication(s) information. Prescription(s) given to the patient. Patient verbalized understanding. Written instructions provided in [place]. The patient was discharged by the physician. He was discharged home and accompanied by parent. He left the Emergency Department ambulatory and via private vehicle. Parent driving. ( pt provided a urinal and urine strainer to take home, rx given, pt ambulatory to [facility], pts mom driving pt home.). --23:24 Donnie Munguia R.N. 23:22 09/18/16. BP: 155/86. HR: 81. RR: 17. O2 saturation: 99%. Temp: deferred. Pain level now: 06/08. --23:24 Donnie Munguia R.N. Condition at departure: improved. --23:24 Donnie Munguia R.N. Locked/Released at 09/19/2016 17:29 by Donnie Munguia R.N.
--- NOTE | 2016-09-18 22:59 | ED CLINICAL REPORT ---
Clinical Report - Physicians/[facility] [address] [place] [address] 09/18/2016 20:59 Patient: HI BORJA *This is a preliminary document and is subject to change Time Seen: 21:45; initial patient contact. Arrived- By private vehicle. Historian- patient. HISTORY OF PRESENT ILLNESS Chief Complaint: FLANK PAIN. At its maximum, severity described as moderate. When seen in the E.D., severity described as moderate. Modifying factors. Not worsened by anything. Not relieved by anything. It is described as cramping and it is described as located in the right flank and radiating to the groin. This started today and is still present and worsening. It was gradual in onset and has been waxing/waning. The patient has had nausea. No loss of appetite, vomiting or diarrhea. Similar symptoms previously: Several times. Recent medical care: Not recently seen/assessed. REVIEW OF SYSTEMS No constipation, difficulty with urination, pain with urination, fever or chills. The patient has had urinary frequency. All systems otherwise negative, except as recorded above. PAST HISTORY Obesity. Hypertension. Ureterolithiasis. Urinary Calculi. Renal Colic. Bronchitis. Chronic bronchitis. Sprain. SOCIAL HISTORY Former smoker. ADDITIONAL NOTES The nursing notes have been reviewed. PHYSICAL EXAM Vital Signs: 09/18/2016 21:34 BP: 202/114. HR: 92. RR: 18. O2 saturation: 97%. Temp: 99.1 F. Pain level now: 10. Have been reviewed. Hypertensive. Heart rate normal. Respiratory rate normal. Temperature normal. Oxygen saturation normal. Appearance: Alert. Appears to be in pain. ENT: Dry mucous membranes present. CVS: Normal heart rate and rhythm. Heart sounds normal. Respiratory: No respiratory distress. Breath sounds normal. Abdomen: Soft. Moderate tenderness in the right side of the abdomen with guarding present. No rebound tenderness or Up's, obturator or psoas sign present. Bowel sounds normal. No organomegaly. No mass. Back: Normal inspection. Moderate CVA tenderness on the right. Skin: Skin warm. No rash. Neuro: Oriented X 3. LABS, X-RAYS, AND EKG Abdominal CT: Mild to moderate right hydronephrosis and hydroureter secondary to a 4 mm right distal ureteral calculus (located 1.5 cm above the ureteral vesicle junction). 2. There are two nonobstructing right renal calculi (0.5 mm). 3. There two nonobstructing left renal calculi (3-4 mm). Study type: renal stone evaluation. Abdominal CT performed without contrast. The study was independently viewed by me, interpreted by the radiologist and discussed with the radiologist. Laboratory Tests: UA-Culture if indicated: (CYDNEY: 09/18/2016 22:01) ( [facility] 09/18/2016 22:33) Final results Test Result Flag Units (Reference) URINE COLOR YELLOW URINE APPEARANCE CLEAR URINE GLUCOSE NEGATIVE (NEGATIVE) URINE BILIRUBIN NEGATIVE (NEGATIVE) URINE KETONE NEGATIVE (NEGATIVE) URINE SPECIFIC GRAVITY >= 1.030 (1.010-1.030) URINE PH 5.5 (5.0-8.0) URINE PROTEIN NEGATIVE (NEGATIVE) URINE UROBILINOGEN 0.2 EU/dL (0.2-1.0) URINE NITRITE NEGATIVE (NEGATIVE) URINE BLOOD 1+ (NEGATIVE) URINE LEUK ESTERASE NEGATIVE (NEGATIVE) URINE RBC RARE rbc/hpf (0-1) URINE WBC RARE wbc/hpf (0-1) URINE EPITHELIAL CELLS NONE SEEN EPI/hpf (0-5) URINE BACTERIA TRACE (<1+) (NONE SEEN) URINE COMMENT CULT NOT INDICATED URINE CULTURES ARE SET-UP BASED ON THE FOLLOWING CRITERIA:POSITIVE NITRITEPOSITIVE LEUKOCYTE ESTERASEGREATER THAN 10 WHITE BLOOD CELLSMODERATE (2+) OR GREATER BACTERIA CBC w Diff: (CYDNEY: 09/18/2016 21:41) ( MsgRcvd 09/18/2016 22:16) Final results Test Result Flag Units (Reference) WHITE BLOOD COUNT 10.9 K/uL (4.5-11.5) RED BLOOD COUNT 4.84 M/uL (4.50-5.90) HEMOGLOBIN 13.5 gm/dL (13.5-17.5) HEMATOCRIT 40.6 L % (41.0-53.0) MEAN CELL VOLUME 84 fL (80-100) MEAN CORPUSCULAR HGB 28 pg (26-34) MEAN CORPUSCULAR HGB CONC 33 g/dL (31-37) RED CELL DISTRIBUTION WIDTH 13.5 % (11.6-14.8) PLATELET COUNT 323 K/uL (150-400) NEUTROPHIL % 64.4 % (50-75) LYMPH % 27.8 % (25-40) MONO % 4.9 % (3-14) EOSINOPHIL % 2.0 % (0-4) BASOPHIL % 0.9 % (0-2) CMP: (CYDNEY: 09/18/2016 21:41) ( MsgRcvd 09/18/2016 22:10) Final results Test Result Flag Units (Reference) GLUCOSE 112 H mg/dL (70-110) BUN 12 mg/dL (7-18) CREATININE 1.0 mg/dL (0.6-1.3) Estimated GFR >60 mL/min Estimated GFR- >60 mL/min Note: Persistent reduction over 3 months in eGFR<60 mL/min/1.73 m2 defines CKD. Patients with eGFR values>=60 mL/min/1.73 m2 may also have CKD if evidence ofpersistent proteinuria. Additional information may be foundat www.[email or web address].org. SODIUM 142 mmol/L (136-145) POTASSIUM 3.7 mmol/L (3.5-5.1) CHLORIDE 103 mmol/L (98-107) CARBON DIOXIDE 25 mmol/L (21-32) CALCIUM 9.4 mg/dL (8.5-10.1) TOTAL PROTEIN 8.2 g/dL (6.4-8.2) ALBUMIN 4.1 g/dL (3.3-5.0) BILIRUBIN, TOTAL 0.5 mg/dL (0.0-1.0) ALKALINE PHOSPHATASE 73 U/L (46-116) AST (SGOT) 24 U/L (15-37) ALT (SGPT) 49 U/L (12-78) . [address]
--- NOTE | 2016-09-18 22:59 | ED NURSING NOTES ---
Clinical Report - Nurses [facility] [address] [place] [address] 09/18/2016 20:59 Patient: HI BORJA TRIAGE Triage time 21:34. Acuity: LEVEL 3. Chief Complaint: ABDOMINAL PAIN and URINARY FREQUENCY and FLANK PAIN. ANDREE COMA SCORE: Andree Coma Scale: 15- eyes open spontaneously (4); best verbal response- oriented x 4 (5); best motor response- obeys commands (6). --21:42 Mariah Pollack R.N. 21:34 09/18/16. BP: 202/114. HR: 92. RR: 18. O2 saturation: 97%. Temp: 99.1 F. Pain level now: 01/08. Additional comments: pt states pain is "off the chart". RLQ/ right flank. --21:42 Mariah Pollack R.N. Weight: 136 kg stated. Height/Length: 70 inches Per Patient. BMI: 43. --21:40 Mariah Pollack R.N. Medications None. --21:37 Mariah Pollack R.N. Allergies None. --21:37 Mariah Pollack R.N. History Arrived by private vehicle. Historian: patient. ( Pt states he is having right sided flank/lower abdominal pain, states that he has had several cases of kidney stones in the past and this feels the same. Symptoms started today about noon.). He has had nausea. Treatment NUTRITIONISTS: None. PAST MEDICAL HX: Gastroesophageal reflux disease. Immunizations: status is unknown. SOCIAL HX: Former smoker, end date 2010. FALL RISK ASSESSMENT: Fall risk assessment completed. No fall risk identified. NUTRITIONAL RISK ASSESSMENT: The nutritional risk assessment revealed no deficiencies. FUNCTIONAL ASSESSMENT: Functional assessment: no impairments noted. LEARNING NEEDS ASSESSMENT: The learning needs assessment revealed no barriers. SKIN INTEGRITY ASSESSMENT: Skin integrity risk assessment completed. No skin integrity risk identified. --21:42 Mariah Pollack R.N. PROBLEMS: Obesity. Hypertension. Ureterolithiasis. Urinary Calculi. Renal Colic. Bronchitis. Chronic bronchitis. Sprain. --21:38 Mariah Pollack R.N. Assessment The patient states feels the same. --21:42 Mariah Pollack R.N. Interventions ID band on patient. To treatment room. --21:42 Mariah Pollack R.N. NURSING PROGRESS NOTES 21:40 09/18/2016 Site #1 started via IV in the left hand with an 20g angiocath; one attempt. Blood drawn: rainbow set. Labeled in the presence of the patient and sent to the lab. Saline lock flushed with 10 mL saline. --21:45 Donnie Munguia R.N. Monitoring of patient in place. Reassurance given. Patient identifiers checked. Call light placed in reach. Side rails up. Bed placed in lowest position. Brakes of bed on. --21:47 Donnie Munguia R.N. 21:49 09/18/2016 Toradol IVP 30 mg given over 2 minute(s) via site #1. Allergies verified and confirmed 5 rights. IV patency established. IV site checked: no pain, redness, or swelling. IV flushed thoroughly pre- and post-medication administration. IVP given by RN. --21:54 Harpreet Schmidt R.N. 21:49 09/18/2016 Zofran (Ondansetron HCl) IVP 4 mg given over 1 minute(s) via site #1. Allergies verified and confirmed 5 rights. IV patency established. IV site checked: no pain, redness, or swelling. IV flushed thoroughly pre- and post-medication administration. IVP given by RN. --21:54 Harpreet Schmidt R.N. 22:02 09/18/2016 Started bag #1 1000 mL IV Fluids IV NS (Saline); at 1000 mL/hr via site #1. Allergies verified and confirmed 5 rights. IV patency established. IV site checked: no pain, redness, or swelling. IV flushed thoroughly pre- and post-medication administration. --22:12 Donnie Munguia R.N. Reassurance given. Patient ID band checked for patient name and birthdate: patient confirmed urine collected with return of yellow-colored urine; sample sent to lab for urinalysis. Specimen labeled in the presence of the patient. Patient identifiers checked. Call light placed in reach. Side rails up. Bed placed in lowest position. Brakes of bed on. ( pt reports minimal relief after pain meds. pain 7-8/10, ivf infusing as ordered, urine sent, pt voided blake 30ml dark yellow urine). --22:14 Donnie Munguia R.N. 21:44 09/18/16. BP: 189/120 (large adult cuff) taken on the left arm, manually, while lying. --22:45 Elizabeth Taylor 22:53 09/18/2016 Dilaudid (HYDROmorphone HCl PF) IVP 1 mg given. via site #1. Allergies verified, confirmed 5 rights and sedative warning given to the patient. IV patency established. IV site checked: no pain, redness, or swelling. IV flushed thoroughly pre- and post-medication administration. --23:03 Donnie Munguia R.N. 23:07 09/18/16. BP: 143/87 taken on the right arm, via an automated monitor, while sitting. HR: 87. O2 saturation: 95% on room air. --23:08 Elizabeth Taylor 23:15 09/18/2016 IV Fluids IV NS Discontinued: upon discharge. Total amount infused: 1000 mL. IV patency established. IV site checked: no pain, redness, or swelling. IV flushed thoroughly. --23:25 Donnie Munguia R.N. 23:17 09/18/2016 Flomax (Tamsulosin HCl) PO 0.4 mg given. Allergies verified and confirmed 5 rights. --23:22 Donnie Munguia R.N. DISPOSITION / DISCHARGE No learning barriers present. Discharge instructions provided and reviewed with the patient. Reviewed medication(s) information. Prescription(s) given to the patient. Patient verbalized understanding. Written instructions provided in [place]. The patient was discharged by the physician. He was discharged home and accompanied by parent. He left the Emergency Department ambulatory and via private vehicle. Parent driving. ( pt provided a urinal and urine strainer to take home, rx given, pt ambulatory to [facility], pts mom driving pt home.). --23:24 Donnie Munguia R.N. 23:22 09/18/16. BP: 155/86. HR: 81. RR: 17. O2 saturation: 99%. Temp: deferred. Pain level now: 06/08. --23:24 Donnie Munguia R.N. Condition at departure: improved. --23:24 Donnie Munguia R.N. Locked/Released at 09/19/2016 17:29 by Donnie Munguia R.N.
--- NOTE | 2016-09-18 22:59 | ED ORDER SUMMARY ---
..... Patient: HI BORJA OrderSheet Located Within [facility] VisitID: [id number] [place] [address] 40y, M Registration Date/Time: 09/18/2016 ORDER SHEET Weight: 136.0 kg (stated) Allergies: None GENERAL ORDERS: CT Abd/Pel wo Cont (Right) Urgent (21:47 09/18/2016 Radha Mclean) (Ack 21:49 AMcQuoid ER Tech1) (22:05 MCampbell) CBC w Diff Urgent (21:47 09/18/2016 Radha Mclean) (Ack 21:49 AMcQuoid ER Tech1) (22:12 KPasamreen-Joyce R.N.) CMP Urgent (21:47 09/18/2016 Radha Mclean) (Ack 21:49 AMcQuoid ER Tech1) (22:12 KPasamreen-Joyce R.N.) UA-Culture if indicated Urgent (21:47 09/18/2016 Radha Mclean) (Ack 21:49 AMcQuoid ER Tech1) (22:12 KPasamreen-Cliffn R.N.) MEDICATION ORDERS: Flomax PO 0.4 mg (Do not crush or chew, NOW) (22:58 09/18/2016 Radha Mclean) IV FLUIDS: IV NS : initial bolus none -, then 1000 mL/hr for X1 (NOW) (21:46 09/18/2016 Radha Mclean) (22:12 Violet R.N.) Toradol IV 30 mg (NOW) (21:46 09/18/2016 Radha Mclean) (21:54 Alvaro R.N.) Zofran IV 4 mg (NOW) (21:46 09/18/2016 Radha Mclean) (21:54 Alvaro R.N.) Dilaudid IV 1 mg (HIGH ALERT MEDICATION, NOW) (22:37 09/18/2016 Radha Mclean) (Ack 22:38 Violet R.N.) ORDER SHEET NOTES: This document has not been locked and should not be saved in the medical record.
--- NOTE | 2016-09-19 17:29 | ED MED RECONCILIATION SUMMARY ---
Patient: HI BORJA Medication Reconciliation Report [facility] VisitID: [id number] [address] [place] [address] 40y, M Registration Date/Time: 09/18/2016 Weight: 136.0 kg Height/Length: 70 in. BMI: 43.0 ALLERGIES: None The patient's Home Medications are listed below: NONE. The source(s) of the original Home Medication information: Not obtained. The following Medications were given to the patient in the Emergency Department: Toradol [IVP] IVP 30 mg, administered: 09/18/2016 9:49:00 PM Zofran [IVP] IVP 4 mg, administered: 09/18/2016 9:49:00 PM IV NS IV Fluids bolus 0, then 1000 mL/hr, administered: 09/18/2016 10:02:00 PM Dilaudid [IVP] IVP 1 mg, administered: 09/18/2016 10:53:00 PM Flomax [PO] PO 0.4 mg, administered: 09/18/2016 11:17:00 PM The following Medications were prescribed to the patient: Hydrocodone/APAP 5mg / 325mg: take 1-2 orally every 6 hours as needed for pain. Dispense twenty (20). No refill. -- Jori Price Dr. Zofran (orally disintegrating tablets) 4 mg: take 1 orally every 6 hours as needed for nausea and vomiting. Dispense ten (10). One refill. Substitution is permissible. -- Jori Price Dr. Flomax 0.4 mg: take 1 orally every 24 hours. Take dose every day 30 minutes after the same meal. Dispense fifteen (15). No refills. Substitution is permissible. -- Jori Price Dr.
--- NOTE | 2016-09-19 17:29 | ED MAR SUMMARY ---
..... Medication Administration Record [facility] [address] [address] Patient: HI BORJA Visit ID: [id number] 40y, M Weight: 136.0 kg Height/Length: 70 in BMI: 43 ALLERGIES: None Given 21:49 09/18/2016 Harpreet Schmidt R.N. Medication Administered: TORADOL [IVP], Dose: 30 mg IVP over 2 minute(s), Site: #1 left hand. Medication Ordered: Toradol IV 30 mg (NOW). Given 21:49 09/18/2016 Harpreet Schmidt R.N. Medication Administered: ZOFRAN [IVP] (ONDANSETRON HCL), Dose: 4 mg IVP over 1 minute(s), Site: #1 left hand. Medication Ordered: Zofran IV 4 mg (NOW). Start 22:02 09/18/2016 Donnie Munguia R.N., Stop 23:15 09/18/2016 Donnie Munguia R.N. Medication Administered: IV NS (SALINE), Dose: IV Fluids, Rate: 1000 mL/hr, Dispensed: 1000 mL bag, Site: #1 left hand. Medication Ordered: IV NS : initial bolus none -, then 1000 mL/hr for X1 (NOW). Given 22:53 09/18/2016 Donnie Munguia R.N. Medication Administered: DILAUDID [IVP] (HYDROMORPHONE HCL PF), Dose: 1 mg IVP, Site: #1 left hand. Medication Ordered: Dilaudid IV 1 mg (HIGH ALERT MEDICATION, NOW). Given 23:17 09/18/2016 Donnie Munguia R.N. Medication Administered: FLOMAX [PO] (TAMSULOSIN HCL), Dose: 0.4 mg PO. Medication Ordered: Flomax PO 0.4 mg (Do not crush or chew, NOW).
--- NOTE | 2016-09-19 17:29 | ED MAR SUMMARY ---
..... Medication Administration Record [facility] [address] [place] [address] Patient: HI BORJA Visit ID: [id number] 40y, M Weight: 136.0 kg Height/Length: 70 in BMI: 43 ALLERGIES: None Given 21:49 09/18/2016 Harpreet Schmidt R.N. Medication Administered: TORADOL [IVP], Dose: 30 mg IVP over 2 minute(s), Site: #1 left hand. Medication Ordered: Toradol IV 30 mg (NOW). Given 21:49 09/18/2016 Harpreet Schmidt R.N. Medication Administered: ZOFRAN [IVP] (ONDANSETRON HCL), Dose: 4 mg IVP over 1 minute(s), Site: #1 left hand. Medication Ordered: Zofran IV 4 mg (NOW). Start 22:02 09/18/2016 Donnie Munguia R.N., Stop 23:15 09/18/2016 Donnie Munguia R.N. Medication Administered: IV NS (SALINE), Dose: IV Fluids, Rate: 1000 mL/hr, Dispensed: 1000 mL bag, Site: #1 left hand. Medication Ordered: IV NS : initial bolus none -, then 1000 mL/hr for X1 (NOW). Given 22:53 09/18/2016 Donnie Munguia R.N. Medication Administered: DILAUDID [IVP] (HYDROMORPHONE HCL PF), Dose: 1 mg IVP, Site: #1 left hand. Medication Ordered: Dilaudid IV 1 mg (HIGH ALERT MEDICATION, NOW). Given 23:17 09/18/2016 Donnie Munguia R.N. Medication Administered: FLOMAX [PO] (TAMSULOSIN HCL), Dose: 0.4 mg PO. Medication Ordered: Flomax PO 0.4 mg (Do not crush or chew, NOW).
--- NOTE | 2016-09-19 17:29 | ED DISCHARGE INSTRUCTIONS ---
Patient: HI BORJA General Instructions [facility] VisitID: [id number] [place] [address] 40y, M Registration Date/Time: 09/18/2016 Ureterolithiasis (multiple stones) in the right ureter with renal colic and hydronephrosis. No acute pyelonephritis, urinary tract infection or hematuria. INSTRUCTIONS Your Current Medications: CONTINUE TAKING THE FOLLOWING MEDICATIONS: None*. Prescription Medications: Hydrocodone/APAP 5mg / 325mg: take 1-2 orally every 6 hours as needed for pain. Dispense twenty (20). No refill. Zofran (orally disintegrating tablets) 4 mg: take 1 orally every 6 hours as needed for nausea and vomiting. Dispense ten (10). One refill. Substitution is permissible. Flomax 0.4 mg: take 1 orally every 24 hours. Take dose every day 30 minutes after the same meal. Dispense fifteen (15). No refills. Substitution is permissible. Follow-up: Follow up with your doctor in about two days. Call for an appointment. Screening today revealed the patient's blood pressure to be in the hypertensive range. The patient should follow up with a primary care provider for blood pressure management. ADDITIONAL INFORMATION Kidney Stone (W/ Colic) The sharp cramping pain and nausea/vomiting that you have is due to a small stone which has formed in the kidney and is now passing down a narrow tube (ureter) on its way to your bladder. Once it reaches your bladder, the pain will stop. The stone may pass in your urine stream in one piece. [The size may be 1/16" to 1/4" (1-6mm)]. Or, the stone may also break up into leandra fragments which you may not even notice. Once you have had a kidney stone, you are at risk for developing another one in the future. Home Care: Drink plenty of fluids (at least 8 to 10 glasses of water a day). Most stones will pass on their own, but may take from a few hours to a few days. Sometimes the stone is too large to pass by itself and special methods will have to be used to remove the stone. Each time you urinate, do so in a jar. Pour the urine from the jar through the strainer and into the toilet. Continue doing this until 24 hours after your pain stops. By then, if there was a kidney stone, it should pass from your bladder. Some stones dissolve into sand-like particles and pass right through the strainer. In that case, you wont ever see a stone. Save any stone that you find in the strainer and bring it to your doctor for analysis. It may be possible to prevent certain types of stones from forming. Therefore, it is important to know what kind of stone you have. Try to stay as active as possible since this will help the stone pass. Do not stay in bed unless your pain prevents you from getting up. You may notice a red, pink or brown color to your urine. This is normal while passing a kidney stone. Follow Up with your doctor or return to this facility if the pain lasts more than 48 hours. Get Prompt Medical Attention if any of the following occur: Pain that is not controlled by the medicine given Repeated vomiting or unable to keep down fluids Weakness, dizziness or fainting Fever of 100.4F (38C) or higher, or as directed by your healthcare provider Passage of solid red or brown urine (can't see through it) or urine with lots of blood clots Unable to pass urine for 8 hours and increasing bladder pressure Hydrocodone Bitartrate, Acetaminophen Oral tablet What is this medicine? ACETAMINOPHEN; HYDROCODONE (a set a SILVINA dominique fen; lex droe KOE done) is a pain reliever. It is used to treat mild to moderate pain. How should I use this medicine? Take this medicine by mouth. Swallow it with a full glass of water. Follow the directions on the prescription label. If the medicine upsets your stomach, take the medicine with food or milk. Do not take more than you are told to take. Talk to your vocational rehabilitation counselor regarding the use of this medicine in children. This medicine is not approved for use in children. What side effects may I notice from receiving this medicine? Side effects that you should report to your doctor or health caregiver assisted living as soon as possible: allergic reactions like skin rash, itching or hives, swelling of the face, lips, or tongue breathing problems confusion feeling faint or lightheaded, falls stomach pain yellowing of the eyes or skin Side effects that usually do not require medical attention (report to your doctor or health caregiver assisted living if they continue or are bothersome): nausea, vomiting stomach upset What may interact with this medicine? alcohol antihistamines isoniazid medicines for depression, anxiety, or psychotic disturbances medicines for sleep muscle relaxants naltrexone narcotic medicines (opiates) for pain phenobarbital ritonavir tramadol What if I miss a dose? If you miss a dose, take it as soon as you can. If it is almost time for your next dose, take only that dose. Do not take double or extra doses. Where should I keep my medicine? Keep out of the reach of children. This medicine can be abused. Keep your medicine in a safe place to protect it from theft. Do not share this medicine with anyone. Selling or giving away this medicine is dangerous and against the law. Store at room temperature between 15 and 30 degrees C (59 and 86 degrees F). Protect from light. Keep container tightly closed. Throw away any unused medicine after the expiration date. Discard unused medicine and used packaging carefully. Pets and children can be harmed if they find used or lost packages. What should I tell my health care provider before I take this medicine? They need to know if you have any of these conditions: brain tumor Crohn's disease, inflammatory bowel disease, or ulcerative colitis drink more than 3 alcohol-containing drinks per day drug abuse or addiction head injury heart or circulation problems kidney disease or problems going to the bathroom liver disease lung disease, asthma, or breathing problems an unusual or allergic reaction to acetaminophen, hydrocodone, other opioid analgesics, other medicines, foods, dyes, or preservatives or trying to get breast-feeding What should I watch for while using this medicine? Tell your doctor or health caregiver assisted living if your pain does not go away, if it gets worse, or if you have new or a different type of pain. You may develop tolerance to the medicine. Tolerance means that you will need a higher dose of the medicine for pain relief. Tolerance is normal and is expected if you take the medicine for a long time. Do not suddenly stop taking your medicine because you may develop a severe reaction. Your body becomes used to the medicine. This does NOT mean you are addicted. Addiction is a behavior related to getting and using a drug for a non-medical reason. If you have pain, you have a medical reason to take pain medicine. Your doctor will tell you how much medicine to take. If your doctor wants you to stop the medicine, the dose will be slowly lowered over time to avoid any side effects. You may get drowsy or dizzy when you first start taking the medicine or change doses. Do not drive, use machinery, or do anything that may be dangerous until you know how the medicine affects you. Stand or sit up slowly. There are different types of narcotic medicines (opiates) for pain. If you take more than one type at the same time, you may have more side effects. Give your health care provider a list of all medicines you use. Your doctor will tell you how much medicine to take. Do not take more medicine than directed. Call emergency for help if you have problems breathing. The medicine will cause constipation. Try to have a bowel movement at least every 2 to 3 days. If you do not have a bowel movement for 3 days, call your doctor or health caregiver assisted living. Too much acetaminophen can be very dangerous. Do not take Tylenol (acetaminophen) or medicines that contain acetaminophen with this medicine. Many non-prescription medicines contain acetaminophen. Always read the labels carefully. Ondansetron Oral disintegrating tablet What is this medicine? ONDANSETRON (on EDELIMRA se vitaly) is used to treat nausea and vomiting caused by chemotherapy. It is also used to prevent or treat nausea and vomiting after surgery. How should I use this medicine? These tablets are made to dissolve in the mouth. Do not try to push the tablet through the foil backing. With dry hands, peel away the foil backing and gently remove the tablet. Place the tablet in the mouth and allow it to dissolve, then swallow. While you may take these tablets with water, it is not necessary to do so. Talk to your vocational rehabilitation counselor regarding the use of this medicine in children. Special care may be needed. What side effects may I notice from receiving this medicine? Side effects that you should report to your doctor or health caregiver assisted living as soon as possible: allergic reactions like skin rash, itching or hives, swelling of the face, lips, or tongue breathing problems dizziness fast or irregular heartbeat feeling faint or lightheaded, falls fever and chills swelling of the hands and feet tightness in the chest Side effects that usually do not require medical attention (report to your doctor or health caregiver assisted living if they continue or are bothersome): constipation or diarrhea headache What may interact with this medicine? Do not take this medicine with any of the following medications: -apomorphine -cisapride -dofetilide -dronedarone -pimozide -thioridazine -ziprasidone This medicine may also interact with the following medications: -carbamazepine -phenytoin -rifampicin -tramadol -other medicines that prolong the QT interval (cause an abnormal heart rhythm) What if I miss a dose? If you miss a dose, take it as soon as you can. If it is almost time for your next dose, take only that dose. Do not take double or extra doses. Where should I keep my medicine? Keep out of the reach of children. Store between 2 and 30 degrees C (36 and 86 degrees F). Throw away any unused medicine after the expiration date. What should I tell my health care provider before I take this medicine? They need to know if you have any of these conditions: heart disease history of irregular heartbeat liver disease low levels of magnesium or potassium in the blood an unusual or allergic reaction to ondansetron, granisetron, other medicines, foods, dyes, or preservatives or trying to get breast-feeding What should I watch for while using this medicine? Check with your doctor or health caregiver assisted living as soon as you can if you have any sign of an allergic reaction. You have been given the following additional information: Kidney Stone W/ Colic Hydrocodone Bitartrate, Acetaminophen Oral tablet Ondansetron Oral disintegrating tablet (Electronically signed by Jori Price Dr. 09/19/2016 0:42)
--- NOTE | 2016-09-19 17:29 | ED MED RECONCILIATION SUMMARY ---
Patient: HI BORJA Medication Reconciliation Report [facility] VisitID: [id number] [address] [place] [address] 40y, M Registration Date/Time: 09/18/2016 Weight: 136.0 kg Height/Length: 70 in. BMI: 43.0 ALLERGIES: None The patient's Home Medications are listed below: NONE. The source(s) of the original Home Medication information: Not obtained. The following Medications were given to the patient in the Emergency Department: Toradol [IVP] IVP 30 mg, administered: 09/18/2016 9:49:00 PM Zofran [IVP] IVP 4 mg, administered: 09/18/2016 9:49:00 PM IV NS IV Fluids bolus 0, then 1000 mL/hr, administered: 09/18/2016 10:02:00 PM Dilaudid [IVP] IVP 1 mg, administered: 09/18/2016 10:53:00 PM Flomax [PO] PO 0.4 mg, administered: 09/18/2016 11:17:00 PM The following Medications were prescribed to the patient: Hydrocodone/APAP 5mg / 325mg: take 1-2 orally every 6 hours as needed for pain. Dispense twenty (20). No refill. -- Jori Price Dr. Zofran (orally disintegrating tablets) 4 mg: take 1 orally every 6 hours as needed for nausea and vomiting. Dispense ten (10). One refill. Substitution is permissible. -- Jori Price Dr. Flomax 0.4 mg: take 1 orally every 24 hours. Take dose every day 30 minutes after the same meal. Dispense fifteen (15). No refills. Substitution is permissible. -- Jori Price Dr.
--- NOTE | 2016-09-19 17:29 | ED DISCHARGE INSTRUCTIONS ---
Patient: HI BORJA General Instructions [facility] VisitID: [id number] [place] [address] 40y, M Registration Date/Time: 09/18/2016 Ureterolithiasis (multiple stones) in the right ureter with renal colic and hydronephrosis. No acute pyelonephritis, urinary tract infection or hematuria. INSTRUCTIONS Your Current Medications: CONTINUE TAKING THE FOLLOWING MEDICATIONS: None*. Prescription Medications: Hydrocodone/APAP 5mg / 325mg: take 1-2 orally every 6 hours as needed for pain. Dispense twenty (20). No refill. Zofran (orally disintegrating tablets) 4 mg: take 1 orally every 6 hours as needed for nausea and vomiting. Dispense ten (10). One refill. Substitution is permissible. Flomax 0.4 mg: take 1 orally every 24 hours. Take dose every day 30 minutes after the same meal. Dispense fifteen (15). No refills. Substitution is permissible. Follow-up: Follow up with your doctor in about two days. Call for an appointment. Screening today revealed the patient's blood pressure to be in the hypertensive range. The patient should follow up with a primary care provider for blood pressure management. ADDITIONAL INFORMATION Kidney Stone (W/ Colic) The sharp cramping pain and nausea/vomiting that you have is due to a small stone which has formed in the kidney and is now passing down a narrow tube (ureter) on its way to your bladder. Once it reaches your bladder, the pain will stop. The stone may pass in your urine stream in one piece. [The size may be 1/16" to 1/4" (1-6mm)]. Or, the stone may also break up into leandra fragments which you may not even notice. Once you have had a kidney stone, you are at risk for developing another one in the future. Home Care: Drink plenty of fluids (at least 8 to 10 glasses of water a day). Most stones will pass on their own, but may take from a few hours to a few days. Sometimes the stone is too large to pass by itself and special methods will have to be used to remove the stone. Each time you urinate, do so in a jar. Pour the urine from the jar through the strainer and into the toilet. Continue doing this until 24 hours after your pain stops. By then, if there was a kidney stone, it should pass from your bladder. Some stones dissolve into sand-like particles and pass right through the strainer. In that case, you wont ever see a stone. Save any stone that you find in the strainer and bring it to your doctor for analysis. It may be possible to prevent certain types of stones from forming. Therefore, it is important to know what kind of stone you have. Try to stay as active as possible since this will help the stone pass. Do not stay in bed unless your pain prevents you from getting up. You may notice a red, pink or brown color to your urine. This is normal while passing a kidney stone. Follow Up with your doctor or return to this facility if the pain lasts more than 48 hours. Get Prompt Medical Attention if any of the following occur: Pain that is not controlled by the medicine given Repeated vomiting or unable to keep down fluids Weakness, dizziness or fainting Fever of 100.4F (38C) or higher, or as directed by your healthcare provider Passage of solid red or brown urine (can't see through it) or urine with lots of blood clots Unable to pass urine for 8 hours and increasing bladder pressure Hydrocodone Bitartrate, Acetaminophen Oral tablet What is this medicine? ACETAMINOPHEN; HYDROCODONE (a set a SILVINA dominique fen; lex droe KOE done) is a pain reliever. It is used to treat mild to moderate pain. How should I use this medicine? Take this medicine by mouth. Swallow it with a full glass of water. Follow the directions on the prescription label. If the medicine upsets your stomach, take the medicine with food or milk. Do not take more than you are told to take. Talk to your ruby software developer regarding the use of this medicine in children. This medicine is not approved for use in children. What side effects may I notice from receiving this medicine? Side effects that you should report to your doctor or health home health aide caregiver as soon as possible: allergic reactions like skin rash, itching or hives, swelling of the face, lips, or tongue breathing problems confusion feeling faint or lightheaded, falls stomach pain yellowing of the eyes or skin Side effects that usually do not require medical attention (report to your doctor or health home health aide caregiver if they continue or are bothersome): nausea, vomiting stomach upset What may interact with this medicine? alcohol antihistamines isoniazid medicines for depression, anxiety, or psychotic disturbances medicines for sleep muscle relaxants naltrexone narcotic medicines (opiates) for pain phenobarbital ritonavir tramadol What if I miss a dose? If you miss a dose, take it as soon as you can. If it is almost time for your next dose, take only that dose. Do not take double or extra doses. Where should I keep my medicine? Keep out of the reach of children. This medicine can be abused. Keep your medicine in a safe place to protect it from theft. Do not share this medicine with anyone. Selling or giving away this medicine is dangerous and against the law. Store at room temperature between 15 and 30 degrees C (59 and 86 degrees F). Protect from light. Keep container tightly closed. Throw away any unused medicine after the expiration date. Discard unused medicine and used packaging carefully. Pets and children can be harmed if they find used or lost packages. What should I tell my health care provider before I take this medicine? They need to know if you have any of these conditions: brain tumor Crohn's disease, inflammatory bowel disease, or ulcerative colitis drink more than 3 alcohol-containing drinks per day drug abuse or addiction head injury heart or circulation problems kidney disease or problems going to the bathroom liver disease lung disease, asthma, or breathing problems an unusual or allergic reaction to acetaminophen, hydrocodone, other opioid analgesics, other medicines, foods, dyes, or preservatives or trying to get breast-feeding What should I watch for while using this medicine? Tell your doctor or health home health aide caregiver if your pain does not go away, if it gets worse, or if you have new or a different type of pain. You may develop tolerance to the medicine. Tolerance means that you will need a higher dose of the medicine for pain relief. Tolerance is normal and is expected if you take the medicine for a long time. Do not suddenly stop taking your medicine because you may develop a severe reaction. Your body becomes used to the medicine. This does NOT mean you are addicted. Addiction is a behavior related to getting and using a drug for a non-medical reason. If you have pain, you have a medical reason to take pain medicine. Your doctor will tell you how much medicine to take. If your doctor wants you to stop the medicine, the dose will be slowly lowered over time to avoid any side effects. You may get drowsy or dizzy when you first start taking the medicine or change doses. Do not drive, use machinery, or do anything that may be dangerous until you know how the medicine affects you. Stand or sit up slowly. There are different types of narcotic medicines (opiates) for pain. If you take more than one type at the same time, you may have more side effects. Give your health care provider a list of all medicines you use. Your doctor will tell you how much medicine to take. Do not take more medicine than directed. Call emergency for help if you have problems breathing. The medicine will cause constipation. Try to have a bowel movement at least every 2 to 3 days. If you do not have a bowel movement for 3 days, call your doctor or health home health aide caregiver. Too much acetaminophen can be very dangerous. Do not take Tylenol (acetaminophen) or medicines that contain acetaminophen with this medicine. Many non-prescription medicines contain acetaminophen. Always read the labels carefully. Ondansetron Oral disintegrating tablet What is this medicine? ONDANSETRON (on EDELMIRA se vitaly) is used to treat nausea and vomiting caused by chemotherapy. It is also used to prevent or treat nausea and vomiting after surgery. How should I use this medicine? These tablets are made to dissolve in the mouth. Do not try to push the tablet through the foil backing. With dry hands, peel away the foil backing and gently remove the tablet. Place the tablet in the mouth and allow it to dissolve, then swallow. While you may take these tablets with water, it is not necessary to do so. Talk to your ruby software developer regarding the use of this medicine in children. Special care may be needed. What side effects may I notice from receiving this medicine? Side effects that you should report to your doctor or health home health aide caregiver as soon as possible: allergic reactions like skin rash, itching or hives, swelling of the face, lips, or tongue breathing problems dizziness fast or irregular heartbeat feeling faint or lightheaded, falls fever and chills swelling of the hands and feet tightness in the chest Side effects that usually do not require medical attention (report to your doctor or health home health aide caregiver if they continue or are bothersome): constipation or diarrhea headache What may interact with this medicine? Do not take this medicine with any of the following medications: -apomorphine -cisapride -dofetilide -dronedarone -pimozide -thioridazine -ziprasidone This medicine may also interact with the following medications: -carbamazepine -phenytoin -rifampicin -tramadol -other medicines that prolong the QT interval (cause an abnormal heart rhythm) What if I miss a dose? If you miss a dose, take it as soon as you can. If it is almost time for your next dose, take only that dose. Do not take double or extra doses. Where should I keep my medicine? Keep out of the reach of children. Store between 2 and 30 degrees C (36 and 86 degrees F). Throw away any unused medicine after the expiration date. What should I tell my health care provider before I take this medicine? They need to know if you have any of these conditions: heart disease history of irregular heartbeat liver disease low levels of magnesium or potassium in the blood an unusual or allergic reaction to ondansetron, granisetron, other medicines, foods, dyes, or preservatives or trying to get breast-feeding What should I watch for while using this medicine? Check with your doctor or health home health aide caregiver as soon as you can if you have any sign of an allergic reaction. You have been given the following additional information: Kidney Stone W/ Colic Hydrocodone Bitartrate, Acetaminophen Oral tablet Ondansetron Oral disintegrating tablet (Electronically signed by Jori Price Dr. 09/19/2016 0:42)
== END 2016-09-18 23:21 | disposition home or self-care (01) ==
LOC: ED SRH 20:59
DX: N13.2 Hydronephrosis with renal and ureteral calculous obstruction (principal); I10 Essential (primary) hypertension; Z87.891 Personal history of nicotine dependence; K21.9 Gastro-esophageal reflux disease without esophagitis
CPT/HCPCS: 90004; 90100; 95059

== ENCOUNTER 2016-09-22 16:49 | Emergency (ER) | payer OTHER ==
--- NOTE | 2016-09-22 18:24 | DIAGNOSTIC IMAGING REPORT ---
PROCEDURE: XR CHEST 1 VIEW INDICATION: CHEST PAIN TECHNIQUE: Portable AP view 05:36 p.m. COMPARISON: Chest x-ray 02/25/2015 FINDINGS: Lungs are clear. Heart and mediastinum are normal. Thorax is normal. No significant interval change. IMPRESSION: 1. Negative chest.
--- NOTE | 2016-09-22 19:32 | DIAGNOSTIC IMAGING REPORT ---
PROCEDURE: CT ABDOMEN/PELVIS W/O CONTRAST INDICATION: Right flank pain. TECHNIQUE: Noncontrast axial images were obtained of the entire abdomen and pelvis with sagittal and coronal reformations. COMPARISON: CT abdomen/pelvis 09/18/2016. FINDINGS: ABDOMEN: 3.5 mm distal right ureteral calculus with anterior progression since the prior CT scan, now 0.5 cm proximal to the UVJ. There is secondary mild to moderate right hydroureteronephrosis. There are two punctate nonobstructing right renal calculi. There are two nonobstructing left renal calculi measuring 3 mm and 4 mm. Liver, gallbladder, pancreas, spleen, adrenal glands and abdominal aorta are normal. Nonspecific bowel gas pattern. Lung base are clear. Heart size is normal. PELVIS: Normal appendix. Normal size prostate with central dystrophic calcifications. No pelvic mass, inflammatory changes or free fluid. Bones are unremarkable. Mild degenerative changes of the spine. IMPRESSION: 1. 3.5 mm distal right ureteral calculus, 0.5 cm proximal to the UVJ, with mild to moderate right hydroureteronephrosis 2. Nonobstructing bilateral renal calculi 3. Results discussed with Dr. Price All CT scans at this facility use dose modulation, iterative reconstruction, and/or weight-based dosing when appropriate to reduce radiation dose to as low as reasonably achievable.
--- NOTE | 2016-09-22 19:39 | DIAGNOSTIC IMAGING REPORT ---
PROCEDURE: CTA THORAX WITH CONTRAST INDICATION: PULMONARY EMBOLUS TECHNIQUE: 84 ml of Isovue 370 was injected intravenously and axial images were obtained of the entire thorax with 3D sagittal and coronal MIP reconstructions. COMPARISON: Chest x-ray 09/22/2016. FINDINGS: Study limited by patient's body size. No central pulmonary emboli, and tiny peripheral emboli cannot be completely excluded. Normal lung parenchyma. No adenopathy or effusions. Normal thoracic aorta without dissection or aneurysm. Normal heart size. Mild to moderate right hydronephrosis. Moderate degenerative changes of the spine. IMPRESSION: 1. Study limited by patient's body habitus but no evidence of central prior emboli. Cannot completely exclude tiny peripheral emboli 2. Mild to moderate right hydronephrosis secondary to distal right ureteral calculus (seen on today's CT abdomen/pelvis). 3. Results discussed with Dr. Price
--- NOTE | 2016-09-22 20:59 | ED CLINICAL REPORT ---
Clinical Report - Physicians/Mid Levels [facility] [address] [place] [address] 09/22/2016 16:50 Patient: HI BORJA Time Seen: 16:54; initial patient contact. Arrived- By private vehicle. Historian- patient. HISTORY OF PRESENT ILLNESS Chief Complaint: ABDOMINAL PAIN. It is described as "pain" and cramping and it is described as located in the right flank and the right lower quadrant and radiating to the groin. This started about 1 week ago and is still present. At its maximum, severity described as moderate. When seen in the E.D., severity described as moderate. Modifying factors. Not worsened by anything. Not relieved by anything. The patient has had nausea. No loss of appetite, vomiting or diarrhea. Similar symptoms previously: Twice. Recent medical care: The patient was seen recently at this facility in the emergency department. REVIEW OF SYSTEMS No constipation, difficulty with urination, pain with urination, urinary frequency or fever. No difficulty breathing, cough or calf pain. He has had chills, chest pain and pedal edema. All systems otherwise negative, except as recorded above. PAST HISTORY Gastroesophageal Reflux Disease. Obesity. Hypertension. Ureterolithiasis. Urinary Calculi. Renal Colic. Bronchitis. Chronic bronchitis. Prior Injury, Same Area. Sprain. ADDITIONAL SURGERIES: Knee Surgery. SOCIAL HISTORY Never smoker. No alcohol use or drug use. ADDITIONAL NOTES The nursing notes have been reviewed. PHYSICAL EXAM Vital Signs: 09/22/2016 17:00 BP: 163/108. HR: 111. RR: 18. O2 saturation: 97%. Temp: 99.8 F. Have been reviewed. Hypertensive. Tachycardic. Respiratory rate normal. Temperature normal. Oxygen saturation normal. Appearance: Alert. Oriented X3. No acute distress. ENT: Pharynx normal. CVS: Tachycardia. Heart sounds normal. Rhythm normal. Respiratory: No respiratory distress. Breath sounds normal. Chest nontender. Abdomen: Soft. Moderate tenderness in the right side of the abdomen with guarding present. No rebound tenderness or Up's sign present. Bowel sounds normal. No organomegaly. No mass. Back: Normal inspection. Moderate CVA tenderness on the right. Skin: Skin warm and dry. Normal skin color. Extremities: Bilateral mild pitting edema of the lower extremities involving both lower legs. No calf tenderness. Neuro: Oriented X 3. LABS, X-RAYS, AND EKG EKG: EKG time: (1708). Narrow-complex tachycardia (ventricular rate 104). Sinus tachycardia. Normal P waves. Normal ANTOLIN. Normal QRS complex. Normal axis. Normal ST and T waves. Prolonged QTc (481). Prior EKG unavailable. The study has been interpreted contemporaneously by me. The study has been independently viewed by me. The EKG appears to be a good tracing. I agree with and confirm the computer reading of the EKG. Interpretation time: 1708. Abdominal CT: 1. 3.5 mm distal right ureteral calculus, 0.5 cm proximal to the UVJ, with mild to moderate right hydroureteronephrosis, stone has progressed mildly 2. Nonobstructing bilateral renal calculi. Study type: renal stone evaluation. Abdominal CT performed without contrast. The study was independently viewed by me, interpreted by the radiologist and discussed with the radiologist. A comparison with prior studies reveals that the findings are improved. Chest CT: (IMPRESSION: 1. Study limited by patient's body habitus but no evidence of central prior emboli. Cannot completely exclude tiny peripheral emboli 2. Mild to moderate right hydronephrosis secondary to distal right ureteral calculus (seen on today's CT abdomen/pelvis).). Chest CT performed with contrast. The study was independently viewed by me, interpreted by the radiologist and discussed with the radiologist. Prior studies were not available for comparison. Lower Extremity Sonography: Negative exam. No compression abnormality noted. The study was interpreted by the radiologist and discussed with the radiologist. Laboratory Tests: UA-Culture if indicated: (CYDNEY: 09/22/2016 17:20) ( MsgRcvd 09/22/2016 18:04) Final results Test Result Flag Units (Reference) URINE COLOR YELLOW URINE APPEARANCE SL CLOUDY URINE GLUCOSE NEGATIVE (NEGATIVE) URINE BILIRUBIN ICTOTEST NEGATIVE (NEGATIVE) URINE KETONE 2+ (NEGATIVE) URINE SPECIFIC GRAVITY 1.020 (1.010-1.030) URINE PH 6.0 (5.0-8.0) URINE PROTEIN TRACE (NEGATIVE) URINE UROBILINOGEN 0.2 EU/dL (0.2-1.0) URINE NITRITE NEGATIVE (NEGATIVE) URINE BLOOD 3+ (NEGATIVE) URINE LEUK ESTERASE NEGATIVE (NEGATIVE) URINE RBC 75-100 rbc/hpf (0-1) URINE WBC NONE SEEN wbc/hpf (0-1) URINE EPITHELIAL CELLS 1-3 EPI/hpf (0-5) URINE BACTERIA NONE SEEN (NONE SEEN) URINE COMMENT CULT NOT INDICATED TRACE MUCUSURINE CULTURES ARE SET-UP BASED ON THE FOLLOWING CRITERIA:POSITIVE NITRITEPOSITIVE LEUKOCYTE ESTERASEGREATER THAN 10 WHITE BLOOD CELLSMODERATE (2+) OR GREATER BACTERIA CBC w Diff: (CYDNEY: 09/22/2016 17:20) ( [facility] 09/22/2016 18:05) Final results Test Result Flag Units (Reference) WHITE BLOOD COUNT 10.9 K/uL (4.5-11.5) RED BLOOD COUNT 4.62 M/uL (4.50-5.90) HEMOGLOBIN 12.7 L gm/dL (13.5-17.5) HEMATOCRIT 39.0 L % (41.0-53.0) MEAN CELL VOLUME 84 fL (80-100) MEAN CORPUSCULAR HGB 28 pg (26-34) MEAN CORPUSCULAR HGB CONC 33 g/dL (31-37) RED CELL DISTRIBUTION WIDTH 13.7 % (11.6-14.8) PLATELET COUNT 290 K/uL (150-400) NEUTROPHIL % 79.3 H % (50-75) LYMPH % 13.7 L % (25-40) MONO % 5.9 % (3-14) EOSINOPHIL % 1.0 % (0-4) BASOPHIL % 0.1 % (0-2) [id number]: (CYDNEY: 09/22/2016 17:20) ( [facility] 09/22/2016 18:32) Final results Test Result Flag Units (Reference) D-DIMER QUANTITATIVE 1.11 H ug/mLFEU (0.27-0.52) The primary value of this quantitative assay relates toits negative predictive value (i.e. exclusion) of pulmonaryembolism/deep vein thrombosis/DIC.Elevated levels of d-dimer may also occur with:, age, cancer, inflammation, liver disease,post-op, infection, hematoma, coronary disease, peripheralarteriopathy, bleeding disorders and thrombolytic treatment.Results should be correlated with other clinical andradiological data.Testing Methodology: Latex Immunoassay BNP: (CYDNEY: 09/22/2016 17:20) ( [facility] 09/22/2016 18:25) Final results Test Result Flag Units (Reference) B-TYPE NATRIURETIC PEPTIDE 32.7 pg/ml (5-100) CPK: (CYDNEY: 09/22/2016 17:20) ( [facility] 09/22/2016 18:55) Final results Test Result Flag Units (Reference) CPK 99 U/L (24-260) TROPONIN I <0.05 ng/mL (0.00-1.5) TROPONIN REFERENCE RANGE:<0.1 NEGATIVE0.1-1.5 INDETERMINANT>1.5 POSITIVE CMP: (CYDNEY: 09/22/2016 17:20) ( [facility] 09/22/2016 18:08) Final results Test Result Flag Units (Reference) GLUCOSE 98 mg/dL (70-110) BUN 11 mg/dL (7-18) CREATININE 1.1 mg/dL (0.6-1.3) Estimated GFR >60 mL/min Estimated GFR- >60 mL/min Note: Persistent reduction over 3 months in eGFR<60 mL/min/1.73 m2 defines CKD. Patients with eGFR values>=60 mL/min/1.73 m2 may also have CKD if evidence ofpersistent proteinuria. Additional information may be foundat www.kidney.org. SODIUM 137 mmol/L (136-145) POTASSIUM 3.6 mmol/L (3.5-5.1) CHLORIDE 100 mmol/L (98-107) CARBON DIOXIDE 25 mmol/L (21-32) CALCIUM 8.6 mg/dL (8.5-10.1) TOTAL PROTEIN 7.6 g/dL (6.4-8.2) ALBUMIN 3.9 g/dL (3.3-5.0) BILIRUBIN, TOTAL 0.9 mg/dL (0.0-1.0) ALKALINE PHOSPHATASE 62 U/L (46-116) AST (SGOT) 26 U/L (15-37) ALT (SGPT) 47 U/L (12-78) . PROGRESS AND PROCEDURES Disposition: Discharged home in good and improved condition. Condition: good. CLINICAL IMPRESSION Ureterolithiasis (multiple stones) in the right ureter with renal colic and hydronephrosis. No acute pyelonephritis or urinary tract infection. Bilateral pedal edema secondary to unknown cause. INSTRUCTIONS Rest at home today and tomorrow. Drink plenty of fluids. Follow a low salt diet. Your Current Medications: CONTINUE TAKING THE FOLLOWING MEDICATIONS: Flomax Oral. Hydrocodone-Acetaminophen Oral. Zofran Oral. Prescription Medications: Hydrocodone/APAP 5mg / 325mg: take 1 orally every 6 hours as needed for pain. Dispense fifteen (15). No refill. Follow-up: Follow up with your doctor in about two days. Call for an appointment. Screening today revealed the patient's blood pressure to be in the hypertensive range. The patient should follow up with a primary care provider for blood pressure management. (Electronically signed by Jori Price Dr. 09/22/2016 22:38)
--- NOTE | 2016-09-22 20:59 | ED ORDER SUMMARY ---
..... Patient: HI BORJA OrderSheet [facility] VisitID: [id number] [place] [address] 40y, M Registration Date/Time: 09/22/2016 ORDER SHEET Weight: 136.0 kg (stated) Allergies: None GENERAL ORDERS: CBC w Diff Urgent (17:09/22/2016 Radha Mclean) (Ack 17:21 Papa) (17:24 LWhalen R.N.) CMP Urgent (17:09/22/2016 Radha Mclean) (Ack 17:21 Papa) (17:24 LWhalen R.N.) UA-Culture if indicated Urgent (17:09/22/2016 Radha Mclean) (17:06 LWhalen R.N.) Chest 1V Urgent (17:26 09/22/2016 Radha Mclean) (Ack 17:55 Papa) (19:50 Marvin ER Data Analysis Assistant) D-Dimer Urgent (17:26 09/22/2016 Radha Mclean) (Ack 17:55 Papa) (18:07 ALawrence ER Tech1) BNP Urgent (17:26 09/22/2016 Radha Mclean) (Ack 17:55 Papa) (18:07 ALawrence ER Tech1) CPK Urgent (17:26 09/22/2016 Radha Mclean) (Ack 17:55 Papa) (18:07 ALawrence ER Tech1) Troponin-I Urgent (17:26 09/22/2016 Radha Mclean) (Ack 17:55 Papa) (18:07 ALawrence ER Tech1) US Venous Bilat (pos d dimer) Urgent (18:34 09/22/2016 Radha Mclean) (Ack 18:49 Papa) (20:14 RMarsden R.N.) CTA Thorax w Cont (No) (01/30.1) Urgent (18:42 09/22/2016 Radha Mclean) (Ack 18:49 Papa) (19:50 Marvin ER Data Analysis Assistant) CT Abd/Pel wo Cont Urgent (18:43 09/22/2016 Radha Mclean) (Ack 18:[facility] (19:50 Marvin ER Data Analysis Assistant) MEDICATION ORDERS: IV FLUIDS: IV NS : initial bolus none -, then 1000 mL/hr for X1 (NOW) (17:00 09/22/2016 Radha Mclean) (17:25 LWgordon R.N.) Toradol IV 30 mg (NOW) (17:01 09/22/2016 Radha Mclean) (17:25 LWhalbindu R.N.) ORDER SHEET NOTES: [Electronically signed by Jori Price Dr. (22:38 09/22/2016)] [Electronically signed by Torri Pacheco R.N. (05:49 09/23/2016)] [Electronically locked/signed by Torri Pacheco R.N. (05:49 09/23/2016)]
--- NOTE | 2016-09-22 20:59 | ED ORDER SUMMARY ---
..... Patient: HI BORJA OrderSheet [facility] VisitID: [id number] [place] [address] 40y, M Registration Date/Time: 09/22/2016 ORDER SHEET Weight: 136.0 kg (stated) Allergies: None GENERAL ORDERS: CBC w Diff Urgent (17:09/22/2016 Radha Mclean) (Ack 17:21 Papa) (17:24 LWhalen R.N.) CMP Urgent (17:09/22/2016 Radha Mclean) (Ack 17:21 Papa) (17:24 LWhalen R.N.) UA-Culture if indicated Urgent (17:09/22/2016 Radha Mclean) (17:06 LWhalen R.N.) Chest 1V Urgent (17:26 09/22/2016 Radha Mclean) (Ack 17:55 Papa) (19:50 Marvin ER Scientific Informatics Project Leader) D-Dimer Urgent (17:26 09/22/2016 Radha Mclean) (Ack 17:55 Papa) (18:07 ALawrence ER Tech1) BNP Urgent (17:26 09/22/2016 Radha Mclean) (Ack 17:55 Papa) (18:07 ALawrence ER Tech1) CPK Urgent (17:26 09/22/2016 Radha Mclean) (Ack 17:55 Papa) (18:07 ALawrence ER Tech1) Troponin-I Urgent (17:26 09/22/2016 Radha Mclean) (Ack 17:55 Papa) (18:07 ALawrence ER Tech1) US Venous Bilat (pos d dimer) Urgent (18:34 09/22/2016 Radha Mclean) (Ack 18:49 Papa) (20:14 RMarsden R.N.) CTA Thorax w Cont (No) (01/30.1) Urgent (18:42 09/22/2016 Radha Mclean) (Ack 18:49 Papa) (19:50 Marvin ER Scientific Informatics Project Leader) CT Abd/Pel wo Cont Urgent (18:43 09/22/2016 Radha Mclean) (Ack 18:49 [facility] (19:50 Marvin ER Scientific Informatics Project Leader) MEDICATION ORDERS: IV FLUIDS: IV NS : initial bolus none -, then 1000 mL/hr for X1 (NOW) (17:00 09/22/2016 Radha Mclean) (17:25 LWgordon R.N.) Toradol IV 30 mg (NOW) (17:01 09/22/2016 Radha Mclean) (17:25 LWhalbindu R.N.) ORDER SHEET NOTES: [Electronically signed by Jori Price Dr. (22:38 09/22/2016)] [Electronically signed by Torri Pacheco R.N. (05:49 09/23/2016)] [Electronically locked/signed by Torri Pacheco R.N. (05:49 09/23/2016)]
--- NOTE | 2016-09-22 20:59 | ED NURSING NOTES ---
Clinical Report - Nurses [facility] [place] [address] 09/22/2016 16:50 [id number] Triage time 17:00 Sep 22 2016. Acuity: LEVEL 3. Chief Complaint: PAIN WITH URINATION and HEMATURIA (pain in bladder). MUKESH COMA SCORE: [place] Coma Scale: 15- eyes open spontaneously (4); best verbal response- oriented x 4 (5); best motor response- obeys commands (6). --17:04 Cheryl Gotti R.N. 17:00 09/22/16. BP: 163/108. HR: 111. RR: 18. O2 saturation: 97%. Temp: 99.8 F. Pain level now 7/10. --17:04 Cheryl Gotti R.N. Weight: 136 kg stated. Height/Length: 71 inches Per Patient. BMI: 41.8. --17:01 Cheryl Gotti R.N. Medications Flomax Oral. --17:03 Cheryl Gotti R.N. Hydrocodone-Acetaminophen Oral. --17:03 Cheryl Gotti R.N. Zofran Oral. --17:03 Cheryl Gotti R.N. Allergies None. --17:02 Cheryl Gotti R.N. History Arrived by private vehicle. Historian: patient. Accompanied by family. ( Was seen on Saturday is not getting better now having chest pains and bilat lower edema swelling.). PAST MEDICAL HX: Immunizations: up-to-date. SOCIAL HX: Never smoker. No alcohol use or drug use. SELF HARM ASSESSMENT: A self harm assessment was performed. The patient answered "yes" to the question "Have you recently felt down, depressed, or hopeless?" and "no" to the question "Do you have thoughts of harming or killing yourself?". FALL RISK ASSESSMENT: Fall risk assessment completed. No fall risk identified. NUTRITIONAL RISK ASSESSMENT: The nutritional risk assessment revealed no deficiencies. FUNCTIONAL ASSESSMENT: Functional assessment: no impairments noted. LEARNING NEEDS ASSESSMENT: The learning needs assessment revealed no barriers. ABUSE ASSESSMENT: Abuse assessment: (yes) The patient was asked "Do you feel safe in your home?". SKIN INTEGRITY ASSESSMENT: Skin integrity risk assessment completed. No skin integrity risk identified. --17:04 Cheryl Gotti R.N. PROBLEMS: Gastroesophageal Reflux Disease. Obesity. Hypertension. Ureterolithiasis. Urinary Calculi. Renal Colic. Bronchitis. Chronic bronchitis. Prior Injury, Same Area. Sprain. --17:03 Cheryl Gotti R.N. ADDITIONAL SURGERIES: Knee Surgery. --17:03 Cheryl Gotti R.N. Interventions ID band on patient. --17:04 Cheryl Gotti R.N. PHYSICAL ASSESSMENT Ambulatory to room. GENERAL / NEURO / PSYCH: Alert. Oriented X 4. Appears in no acute distress. Appears in pain. RESPIRATORY: Respirations not labored. Breath sounds within normal limits. CVS: Normal heart rate and rhythm. Capillary refill less than 2 seconds. GI / : Bowel sounds within normal limits. CVA tenderness. ( States was diagnosed with kidney stones.). SKIN: Skin rash. --17: Cheryl Gotti R.N. NURSING PROGRESS NOTES ( EKG completed). --17: Cheryl Gotti R.N. The initial plan of care for this patient includes an assessment with efforts to address patient positioning, appropriate ambient lighting and comfortable environmental temperature; impairment of the genitourinary system. panel monitor, pulse oximeter and NIBP monitor placed on patient. Patient gowned. Head of bed elevated 75 degrees. Reassurance given. Call light placed in reach. Side rails up x 1. Bed placed in lowest position. Brakes of bed on. --17: Cheryl Gotti R.N. 17:09/22/2016 Site #1 started via IV in the left hand with an 20g angiocath, with aseptic technique and good blood return; one attempt. Blood drawn: rainbow set. Labeled in the presence of the patient and sent to the lab. Saline lock flushed with 10 mL saline. --17:25 Cheryl Gotti R.N. 17:09/22/2016 Toradol IVP 30 mg given over 2 minute(s) via site #1. Allergies verified and confirmed 5 rights. IV patency established. IV site checked: no pain, redness, or swelling. IV flushed thoroughly pre- and post-medication administration. --17:25 Cheryl Gotti R.N. 17:09/22/2016 Started bag #1 1000 mL IV Fluids IV NS (Saline); at 999 mL/hr over 1 hour(s) via site #1 via IV pump. Allergies verified and confirmed 5 rights. IV patency established. IV site checked: no pain, redness, or swelling. IV flushed thoroughly pre- and post-medication administration. --17:25 Cheryl Gotti R.N. 18:09/22/2016 IV Fluids IV NS Discontinued: bag #1 infused. Total amount infused: 1000 mL. --21:13 Vickie Montes 18:50 09/22/2016 Site #2 started via IV in the right antecubital space with an 20g angiocath, with aseptic technique and good blood return; one attempt. Saline lock flushed with 10 mL saline. --18:50 Nimesh Hi R.N. ( Report given to Torri FUENTES). --19:02 Cheryl Gotti R.N. 19:05. Patient transported to PR by stretcher with tech. --19:11 Torri Pacheco R.N. 20:07 09/22/16. ( US in room). --20:07 Torri Pacheco R.N. 21:09/22/2016 Site #1 removed upon discharge. Catheter intact. Pressure dressing applied. --21:13 Vickie Montes 21:09/22/2016 Site #2 removed upon discharge. Catheter intact. Pressure dressing applied. --21:13 Vickie Montes. DISPOSITION / DISCHARGE 21:09/22/16. Departure time: :Sep 22 2016. Condition at departure: improved. The goals identified in the patient's plan of care were met. No learning barriers present. Discharge instructions provided and reviewed with the patient. Reviewed warnings (Patient verbalized understanding of sedation warning. Patient verbalized awareness of warning s/sx listed in dc paperwork.). Reviewed medication(s). Prescription(s) given to the patient (Hydrocodone). Treatments reviewed. Reviewed referral to a primary care physician for followup. Patient verbalized understanding. Written instructions provided in Mexican. The patient was discharged by the physician. He was discharged home and accompanied by family. He left the Emergency Department ambulatory and via private vehicle. Family member driving. FALL RISK ASSESSMENT: Fall risk assessment completed. No fall risk identified. --21:13 Vickie Montes 21:11 09/22/16. BP: 155/87. HR: 99. RR: 14. O2 saturation: 95% on room air. Temp: 99.9 F. Pain level now: 08/08. --21:13 Vickie Montes. Locked/Released at 09/23/2016 5:49 by Torri Pacheco R.N.
--- NOTE | 2016-09-22 22:11 | DIAGNOSTIC IMAGING REPORT ---
PROCEDURE: US VENOUS - BILATERAL EXT INDICATION: SWELLING TECHNIQUE: Color Doppler duplex imaging of the deep and superficial venous system without and with compression. COMPARISON: None. FINDINGS: RIGHT LOWER EXTREMITY: Deep and superficial venous system of the right lower extremity is within normal limits. There is no evidence of deep vein thrombosis or superficial thrombophlebitis. LEFT LOWER EXTREMITY: Deep and superficial venous system of the left lower extremity is within normal limits. There is no evidence of deep vein thrombosis or superficial thrombophlebitis. IMPRESSION: 1. Negative venous ultrasound of the bilateral lower extremities.
--- NOTE | 2016-09-23 05:49 | ED MAR SUMMARY ---
..... Medication Administration Record [facility] [address] [place] [address] Patient: HI BORJA Visit ID: [id number] 40y, M Weight: 136.0 kg Height/Length: 71 in BMI: 41.8 ALLERGIES: None Given 17:20 09/22/2016 Cheryl Gotti R.N. Medication Administered: TORADOL [IVP], Dose: 30 mg IVP over 2 minute(s), Site: #1 left hand. Medication Ordered: Toradol IV 30 mg (NOW). Start 17:25 09/22/2016 Cheryl Gotti RPhi, Stop 18:25 09/22/2016 Vickie Montes, Medication Administered: IV NS (SALINE), Dose: IV Fluids over 1 hour(s), Rate: 999 mL/hr, Dispensed: 1000 mL bag, Site: #1 left hand. Medication Ordered: IV NS : initial bolus none -, then 1000 mL/hr for X1 (NOW).
--- NOTE | 2016-09-23 05:49 | ED MAR SUMMARY ---
..... Medication Administration Record [facility] [address] [place] [address] Patient: HI BORJA Visit ID: [id number] 40y, M Weight: 136.0 kg Height/Length: 71 in BMI: 41.8 ALLERGIES: None Given 17:20 09/22/2016 Cheryl Gotti R.N. Medication Administered: TORADOL [IVP], Dose: 30 mg IVP over 2 minute(s), Site: #1 left hand. Medication Ordered: Toradol IV 30 mg (NOW). Start 17:25 09/22/2016 Cheryl Gotti RPhi, Stop 18:25 09/22/2016 Vickie Montes, Medication Administered: IV NS (SALINE), Dose: IV Fluids over 1 hour(s), Rate: 999 mL/hr, Dispensed: 1000 mL bag, Site: #1 left hand. Medication Ordered: IV NS : initial bolus none -, then 1000 mL/hr for X1 (NOW).
--- NOTE | 2016-09-23 05:49 | ED MED RECONCILIATION SUMMARY ---
Patient: HI BORJA Medication Reconciliation Report [facility] VisitID: [id number] [address] [place] [address] 40y, M Registration Date/Time: 09/22/2016 Weight: 136.0 kg Height/Length: 71 in. BMI: 41.8 ALLERGIES: None The patient's Home Medications are listed below: CONTINUE TAKING THE FOLLOWING MEDICATIONS: Flomax Oral Hydrocodone-Acetaminophen Oral Zofran Oral The source(s) of the original Home Medication information: Not obtained. The following Medications were given to the patient in the Emergency Department: IV NS IV Fluids bolus 0, then 999 mL/hr, administered: 09/22/2016 5:25:00 PM Toradol [IVP] IVP 30 mg, administered: 09/22/2016 5:20:00 PM The following Medications were prescribed to the patient: Hydrocodone/APAP 5mg / 325mg: take 1 orally every 6 hours as needed for pain. Dispense fifteen (15). No refill. -- Jori Price Dr.
--- NOTE | 2016-09-23 05:49 | ED MED RECONCILIATION SUMMARY ---
Patient: HI BORJA Medication Reconciliation Report [facility] VisitID: [id number] [address] [place] [address] 40y, M Registration Date/Time: 09/22/2016 Weight: 136.0 kg Height/Length: 71 in. BMI: 41.8 ALLERGIES: None The patient's Home Medications are listed below: CONTINUE TAKING THE FOLLOWING MEDICATIONS: Flomax Oral Hydrocodone-Acetaminophen Oral Zofran Oral The source(s) of the original Home Medication information: Not obtained. The following Medications were given to the patient in the Emergency Department: IV NS IV Fluids bolus 0, then 999 mL/hr, administered: 09/22/2016 5:25:00 PM Toradol [IVP] IVP 30 mg, administered: 09/22/2016 5:20:00 PM The following Medications were prescribed to the patient: Hydrocodone/APAP 5mg / 325mg: take 1 orally every 6 hours as needed for pain. Dispense fifteen (15). No refill. -- Jori Price Dr.
--- NOTE | 2016-09-23 05:49 | ED DISCHARGE INSTRUCTIONS ---
Patient: HI BORJA General Instructions [facility] VisitID: [id number] [place] [address] 40y, M Registration Date/Time: 09/22/2016 Ureterolithiasis (multiple stones) in the right ureter with renal colic and hydronephrosis. No acute pyelonephritis or urinary tract infection. Bilateral pedal edema secondary to unknown cause. INSTRUCTIONS Rest at home today and tomorrow. Drink plenty of fluids. Follow a low salt diet. Your Current Medications: CONTINUE TAKING THE FOLLOWING MEDICATIONS: Flomax Oral. Hydrocodone-Acetaminophen Oral. Zofran Oral. Prescription Medications: Hydrocodone/APAP 5mg / 325mg: take 1 orally every 6 hours as needed for pain. Dispense fifteen (15). No refill. Follow-up: Follow up with your doctor in about two days. Call for an appointment. Screening today revealed the patient's blood pressure to be in the hypertensive range. The patient should follow up with a primary care provider for blood pressure management. ADDITIONAL INFORMATION Kidney Stone (W/ Colic) The sharp cramping pain and nausea/vomiting that you have is due to a small stone which has formed in the kidney and is now passing down a narrow tube (ureter) on its way to your bladder. Once it reaches your bladder, the pain will stop. The stone may pass in your urine stream in one piece. [The size may be 1/16" to 1/4" (1-6mm)]. Or, the stone may also break up into leandra fragments which you may not even notice. Once you have had a kidney stone, you are at risk for developing another one in the future. Home Care: Drink plenty of fluids (at least 8 to 10 glasses of water a day). Most stones will pass on their own, but may take from a few hours to a few days. Sometimes the stone is too large to pass by itself and special methods will have to be used to remove the stone. Each time you urinate, do so in a jar. Pour the urine from the jar through the strainer and into the toilet. Continue doing this until 24 hours after your pain stops. By then, if there was a kidney stone, it should pass from your bladder. Some stones dissolve into sand-like particles and pass right through the strainer. In that case, you wont ever see a stone. Save any stone that you find in the strainer and bring it to your doctor for analysis. It may be possible to prevent certain types of stones from forming. Therefore, it is important to know what kind of stone you have. Try to stay as active as possible since this will help the stone pass. Do not stay in bed unless your pain prevents you from getting up. You may notice a red, pink or brown color to your urine. This is normal while passing a kidney stone. Follow Up with your doctor or return to this facility if the pain lasts more than 48 hours. Get Prompt Medical Attention if any of the following occur: Pain that is not controlled by the medicine given Repeated vomiting or unable to keep down fluids Weakness, dizziness or fainting Fever of 100.4F (38C) or higher, or as directed by your healthcare provider Passage of solid red or brown urine (can't see through it) or urine with lots of blood clots Unable to pass urine for 8 hours and increasing bladder pressure Leg Swelling [Bilateral] Swelling of the feet, ankles and legs is called "Edema." It is due to excess fluid collecting in the tissues. Because of gravity, excess fluid in the body settles in the lowest part. This is why the legs and feet are most affected. Some of the causes for edema include: Disease of the heart (congestive heart failure or "CHF") Prolonged standing or sitting (with the legs in the down position) Infection of the feet or legs Venous Insufficiency (congestion of blood in the veins of the legs) Varicose veins (dilated veins of the lower leg) Garters, or clothing that constricts your legs. (These will cause venous congestion by restricting blood flow.) Some medicines (hormones such as control pills; some blood pressure medicines, such as calcium channel blockers; steroids; some antidepressants such as MAO inhibitors and tricyclics.) Menstrual periods with fluid retention Renal insufficiency (a form of kidney disease) Liver failure (Some swelling is normal, but a sudden increase in leg swelling or weight gain can be a sign of a dangerous complication of ). Medical treatment will depend on the cause of your swelling. Diuretics (water pills) may be prescribed to remove excess fluid. Home Care: Do not wear garments that constrict your legs (such as garters). Elevate your legs while lying or sitting. If infection, injury or recent surgery is the cause for your swelling, stay off your legs as much as possible until symptoms improve. If your doctor says that your leg swelling is caused by venous insufficiency or varicose veins, do not sit or coil inspector one place for long periods of time. Take breaks and walk about every few hours. Brisk walking is a good exercise and helps circulate the congested blood from your leg. Talk to your doctor about the use of support stockings to prevent daytime leg swelling. If your doctor says that heart disease is the cause of your leg swelling, follow a low-salt diet to prevent excess fluid retention. Follow Up with your doctor or as advised by our staff. Get Prompt Medical Attention if any of the following occur: New or worsening shortness of breath or chest pain Increasing swelling in both legs or ankles Swelling of the abdomen Redness, warmth or swelling in one leg Fever of 100.4F (38C) or higher, or as directed by your healthcare provider Yellow color to the skin or eyes Rapid, unexplained weight gain Low-Salt Diet (2 Grams/Day) This diet eliminates foods that are high in salt and restricts the amount of salt that you cook with. It is most often used for patients with high blood pressure, edema (fluid retention), kidney, liver, and heart disease. Table salt contains the mineral sodium. The body needs sodium to work normally. But too much sodium can make your health problems worse. Your healthcare provider is recommending a low-salt (also called low-sodium) diet for you. Your total daily allowance of salt (sodium) is 2 grams. This equals 2,000 milligrams (mg). It is less than 1 teaspoon of table salt. This means you can have only about 700 mg of sodium at each meal. When you cook, limit the salt you use. And if you can avoid using salt, even better. Do not add salt at the table. So, throw away the saltshaker! When shopping, read the package labels. Salt is often called sodium on the label. Choose foods that are Salt-Free, Low Salt, or Very Low Salt. Note that foods with Reduced Salt may notlower your salt intake enough. Beverages OK: Tea, coffee, carbonated beverages, juices AVOID: Flavored international coffees, electrolyte replacement drinks, sports beverages Bread & Cereals OK: All regular bread, rolls, cereals, cakes; low-salt crackers, matzoh crackers AVOID: Salted crackers, pretzels, popcorn; monegasque toast, pancakes, muffins Fruits & Desserts OK: Ice cream, frozen yogurt, juice bars, gelatin (Jell-O), cookies and pies, sugar, honey, jelly, hard candy AVOID: Most pies, cakes and cookies prepared or processed with salt, instant pudding Meats OK: All fresh meat, fish, poultry, low-salt tuna AVOID: Smoked, pickled, brine-cured, or salted meats or fish. Thisincludes hoover, chipped beef, corned beef, hot dogs, luncheon meats, ham, kosher meats, salt pork, sausage, canned tuna, salted codfish, smokedsalmon, wood, sardines, or anchovies. Dairy OK: Milk, chocolate milk, hot chocolate mix; eggs, Low Salt cheeses, yogurt, egg substitute AVOID: Processed cheese, cheese spreads, Roquefort, Camembert, and cottage cheese, buttermilk, instant breakfast drink Beans, Potatoes & Pasta OK: Dry beans, split peas, lentils, potatoes, rice, macaroni, noodles, spaghetti without added salt AVOID: Potato chips, tortilla chips, and similar products Soups OK: Low-salt soups and broths made with allowed foods AVOID: Bouillon cubes, soups with smoked or salted meats, regular soup and broth Vegetables OK: Most are okay; low-salt tomato and vegetable juices AVOID: Sauerkraut and other brine-soaked vegetables, pickles and other pickled vegetables, tomato juice, olives Seasoning & Spices OK: Most seasonings are okay. Good substitutes for salt include: fresh herb blends, Tabasco, lemon, garlic, johnson, vinegar, dry mustard, parsley, cilantro, horseradish, tomato paste, regular margarine, mayonnaise, butter, cream cheese, vegetable oil, cream, low-salt salad dressing and gravy AVOID: Regular ketchup, relishes, pickles, soy sauce, teriyaki sauce, Worcestershire sauce, BBQ sauce, tartar sauce, meat tenderizer, chili sauce, regular gravy, regular salad dressing Hydrocodone Bitartrate, Acetaminophen Oral tablet What is this medicine? ACETAMINOPHEN; HYDROCODONE (a set a SILVINA dominique fen; lex droe KOE done) is a pain reliever. It is used to treat mild to moderate pain. How should I use this medicine? Take this medicine by mouth. Swallow it with a full glass of water. Follow the directions on the prescription label. If the medicine upsets your stomach, take the medicine with food or milk. Do not take more than you are told to take. Talk to your pupil personnel worker regarding the use of this medicine in children. This medicine is not approved for use in children. What side effects may I notice from receiving this medicine? Side effects that you should report to your doctor or health intensive care ambulance paramedic as soon as possible: allergic reactions like skin rash, itching or hives, swelling of the face, lips, or tongue breathing problems confusion feeling faint or lightheaded, falls stomach pain yellowing of the eyes or skin Side effects that usually do not require medical attention (report to your doctor or health intensive care ambulance paramedic if they continue or are bothersome): nausea, vomiting stomach upset What may interact with this medicine? alcohol antihistamines isoniazid medicines for depression, anxiety, or psychotic disturbances medicines for sleep muscle relaxants naltrexone narcotic medicines (opiates) for pain phenobarbital ritonavir tramadol What if I miss a dose? If you miss a dose, take it as soon as you can. If it is almost time for your next dose, take only that dose. Do not take double or extra doses. Where should I keep my medicine? Keep out of the reach of children. This medicine can be abused. Keep your medicine in a safe place to protect it from theft. Do not share this medicine with anyone. Selling or giving away this medicine is dangerous and against the law. Store at room temperature between 15 and 30 degrees C (59 and 86 degrees F). Protect from light. Keep container tightly closed. Throw away any unused medicine after the expiration date. Discard unused medicine and used packaging carefully. Pets and children can be harmed if they find used or lost packages. What should I tell my health care provider before I take this medicine? They need to know if you have any of these conditions: brain tumor Crohn's disease, inflammatory bowel disease, or ulcerative colitis drink more than 3 alcohol-containing drinks per day drug abuse or addiction head injury heart or circulation problems kidney disease or problems going to the bathroom liver disease lung disease, asthma, or breathing problems an unusual or allergic reaction to acetaminophen, hydrocodone, other opioid analgesics, other medicines, foods, dyes, or preservatives or trying to get breast-feeding What should I watch for while using this medicine? Tell your doctor or health intensive care ambulance paramedic if your pain does not go away, if it gets worse, or if you have new or a different type of pain. You may develop tolerance to the medicine. Tolerance means that you will need a higher dose of the medicine for pain relief. Tolerance is normal and is expected if you take the medicine for a long time. Do not suddenly stop taking your medicine because you may develop a severe reaction. Your body becomes used to the medicine. This does NOT mean you are addicted. Addiction is a behavior related to getting and using a drug for a non-medical reason. If you have pain, you have a medical reason to take pain medicine. Your doctor will tell you how much medicine to take. If your doctor wants you to stop the medicine, the dose will be slowly lowered over time to avoid any side effects. You may get drowsy or dizzy when you first start taking the medicine or change doses. Do not drive, use machinery, or do anything that may be dangerous until you know how the medicine affects you. Stand or sit up slowly. There are different types of narcotic medicines (opiates) for pain. If you take more than one type at the same time, you may have more side effects. Give your health care provider a list of all medicines you use. Your doctor will tell you how much medicine to take. Do not take more medicine than directed. Call emergency for help if you have problems breathing. The medicine will cause constipation. Try to have a bowel movement at least every 2 to 3 days. If you do not have a bowel movement for 3 days, call your doctor or health intensive care ambulance paramedic. Too much acetaminophen can be very dangerous. Do not take Tylenol (acetaminophen) or medicines that contain acetaminophen with this medicine. Many non-prescription medicines contain acetaminophen. Always read the labels carefully. You have been given the following additional information: Kidney Stone W/ Colic Peripheral Edema, Bilateral Diet, Low Salt (2Gm) Hydrocodone Bitartrate, Acetaminophen Oral tablet Rest at home today and tomorrow. (Electronically signed by Jori Price Dr. 09/22/2016 22:38)
== END 2016-09-22 21:13 | disposition home or self-care (01) ==
LOC: ED SRH 16:49
DX: N13.2 Hydronephrosis with renal and ureteral calculous obstruction (principal); R07.9 Chest pain, unspecified; I10 Essential (primary) hypertension; Z79.899 Other long term (current) drug therapy
CPT/HCPCS: 90004; 90074; 90100; 90616; 91320; 91556; 92610; 95059